=== PATIENT | male | born 1970 | race African-American/Black ===

== ENCOUNTER 2018-01-14 10:10 | Inpatient (IN) | payer BC ==
--- NOTE | 2018-01-14 12:45 | HP ---
CIWA Score - CIWA Score Nausea/Vomitin-Mild Nausea/No Vomiting Muscle Tremors: 3 Anxiety: 3 Agitation: 2 Paroxysmal Sweats: 1-Minimal Palms Moist Orientation: 0-Oriented Tacttile Disturbances: 0-None Auditory Disturbances: 0-None Visual Disturbances: 0-None Headache: 2-Mild CIWA-Ar Total Score: 12 Admission [facility] Chief Complaint: ETOH withdrawal symptoms. Allergies/Adverse Reactions: Allergies Allergy/AdvReac Type Severity Reaction Status Date / Time chlordiazepoxide Allergy Severe Swelling Verified 01/14/18 11:51 [From Librium] Fish Containing Products Allergy Severe Itching Verified 01/14/18 11:54 History of Present Illness: Patient presents with ETOH withdrawal symptoms. Started drinking ETOH at age 12. Drinks up to 1 pint of liquor daily and 12 20 ounce beers. Last drink last night. Patient also sniffs cocaine, last time used last night. States he uses cocaine socially. Also treated for opiod addiction with suboxone by Dr. Rukhsana Perez. Last dispensed 01/01/18 8mg BID #60, 30 day supply. Patient non- compliant with treatment. Last dose 4 days ago. PMH includes asthma and depression. Denies SI/HI. Has history of suicide attempts 1 1/2 years ago by overdosing on pills. Patient does not want suboxone treatment as in patient. Prefers to follow up with Dr. Perez. Denies any seizure history. Exam Limitations: No Limitations - Ebola screening Have you traveled outside of the country in the last 21 days: No Have you had contact with anyone from an Ebola affected area: No Have you been sick,other than usual withdrawal symptoms: No Do you have a fever: No - Review of Systems Constitutional: Changes in sleep, Unintentional Wgt. Loss EENT: reports: Nose Congestion Respiratory: reports: No Symptoms reported Cardiac: reports: No Symptoms Reported GI: reports: Diarrhea, Nausea, Poor Appetite : reports: No Symptoms Reported Musculoskeletal: reports: Back Pain, Joint Pain Integumentary: reports: Sweating Neuro: reports: Headache, Tremors Endocrine: reports: Unexplained Weight Loss Hematology: reports: No Symptoms Reported Psychiatric: reports: Orientated x3, Anxious, Depressed Patient History - Patient Medical History Hx Anemia: No Hx Asthma: Yes Hx Chronic Obstructive Pulmonary Disease (COPD): No Hx Cancer: No Hx Cardiac Disorders: No Hx Congestive Heart Failure: No Hx Hypertension: No Hx Hypercholesterolemia: No Hx Pacemaker: No HX Cerebrovascular Accident: No Hx Seizures: No Hx Dementia: No Hx Diabetes: No Hx Gastrointestinal Disorders: No Hx Liver Disease: No Hx Genitourinary Disorders: No Hx Sexually Transmitted Disorders: No Hx Renal Disease (ESRD): No Hx Thyroid Disease: No Hx Human Immunodeficiency Virus (HIV): No Hx Hepatitis C: No Hx Depression: Yes Hx Suicide Attempt: Yes (2016, pill overdose) Hx Bipolar Disorder: No Hx Schizophrenia: No - Patient Surgical History Past Surgical History: Yes Hx Neurologic Surgery: No Hx Cataract Extraction: No Hx Cardiac Surgery: No Hx Lung Surgery: No Hx Breast Surgery: No Hx Breast Biopsy: No Hx Abdominal Surgery: Yes (hernia repair) Hx Appendectomy: No Hx Cholecystectomy: No Hx Genitourinary Surgery: No Hx Orthopedic Surgery: No Anesthesia Reaction: No - PPD History Previous Implant?: Yes Documented Results: Negative w/o proof Implanted On Prior [facility] Admission?: No PPD to be Administered?: Yes - Smoking Cessation Smoking history: Never smoked Have you smoked in the past 12 months: No Hx Chewing Tobacco Use: No Initiated information on smoking cessation: No - Substance & Tx. History Hx Alcohol Use: Yes Hx Substance Use: Yes Substance Use Type: Alcohol, Cocaine Hx Substance Use Treatment: No - Substances Abused Cocaine Route: Inhalation Frequency: 1-3 times last 30 days Amount used: $50 Age of first use: 26 Date of Last Use: 01/13/18 Alcohol-beer Route: Oral Frequency: Daily Amount used: 5-6 pks. (16 oz.) Age of first use: 12 Date of Last Use: 01/13/18 Family Disease History - Family Disease History Family Disease History: Diabetes: Father (Hemodialysis patient), Other: Father Admission Physical Exam [facility] - Vital Signs Vital Signs: Vital Signs - 24 hr 01/14/18 11:11 Temperature 97 F L Pulse Rate 74 Respiratory 20 Rate Blood Pressure 113/72 - Physical General Appearance: Yes: Appropriately Dressed, Tremorous, Sweating, Anxious HEENTM: Yes: EOMI, Hearing grossly Normal, Normocephalic, Normal Voice, MELISSA, Nasal Congestion Respiratory: Yes: Chest Non-Tender, Lungs Clear, Normal Breath Sounds, No Respiratory Distress, No Accessory Muscle Use Neck: Yes: No masses,lesions,Nodules, Supple, Trachea in good position Breast: Yes: Breast Exam Deferred Cardiology: Yes: Regular Rhythm, Regular Rate, S1, S2 Abdominal: Yes: Normal Bowel Sounds, Non Tender, Soft Genitourinary: Yes: Within Normal Limits Back: Yes: Normal Inspection, Muscle Spasm Musculoskeletal: Yes: full range of Motion, Gait Steady, Back pain, Muscle Pain Extremities: Yes: Normal Range of Motion, Non-Tender, Tremors 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 NML intact, Fully Oriented, Alert, Motor Strength 5/5, Depressed Affect Integumentary: Yes: Normal Color, Warm, Moist Lymphatic: Yes: Within Normal Limits - Diagnostic (1) Alcohol dependence with uncomplicated withdrawal Current Visit: Yes Status: Acute (2) Cocaine dependence Current Visit: Yes Status: Acute Qualifiers: Substance use status: uncomplicated Qualified Code(s): F14.20 - Cocaine dependence, uncomplicated (3) Depressed affect Current Visit: Yes Status: Suspected (4) Asthma Current Visit: Yes Status: Chronic Qualifiers: Asthma complication type: unspecified Cleared for Admission [facility] - Detox or Rehab [facility] Level of Care: Medically Managed Detox Regimen/Protocol: Valium [facility] Breath Alcohol Content Breath Alcohol Content: 0 Urine Drug Screen - Results Drug Screen Negative: No Urine Drug Screen Results: AMIRA-Cocaine
[2018-01-14] MEDS ORDERED: guaiFENesin/D-METHORPHAN HB 10 ML UNIT-DOSE CUPS PO PRN (12:54)
[2018-01-14] MEDS ORDERED: ACETAMINOPHEN 325 MG TABLET (FP) PO PRN (12:54)
[2018-01-14] MEDS ORDERED: MAGNESIUM HYDROX 2400MG/30ML ORAL SUSPENSION 30 ML CUP PO PRN (12:54)
[2018-01-14] MEDS ORDERED: P-EPHED 60MG/TRIPROLIDI 2.5MG TABLET PO PRN (12:54)
[2018-01-14] MEDS ORDERED: IBUPROFEN 400 MG TABLET (FP) PO PRN (12:54)
[2018-01-14] MEDS ORDERED: LOPERAMIDE HCL 2 MG CAPSULE PO PRN (12:54)
[2018-01-14] MEDS ORDERED: hydrOXYzine PAMOATE 50 MG CAPSULE (FP) PO PRN (12:54)
[2018-01-14] MEDS ORDERED: MAG HYDROX/AL HYDROX/SIMETH 30 ML UNIT-DOSE CUP PO PRN (12:54)
[2018-01-14] MEDS ORDERED: MAGNESIUM CITRATE 300 ML BOTTLE PO PRN (12:54)
[2018-01-14] MEDS ORDERED: MENTHOL/PHENOL 1 EACH UD MM PRN (12:54)
[2018-01-14] MEDS ORDERED: diazePAM 5 MG TABLET PO ONE (14:00)
--- NOTE | 2018-01-14 14:53 | EKG ---
Test Reason : Blood Pressure : / mmHG Vent. Rate : 062 BPM Atrial Rate : 062 BPM P-R Int : 136 ms QRS Dur : 074 ms QT Int : 420 ms P-R-T Axes : 055 043 007 degrees QTc Int : 426 ms NORMAL SINUS RHYTHM NORMAL ECG NO PREVIOUS ECGS AVAILABLE Confirmed by JANET ANTHONY, MICHOACANO ([id number]) on 01/14/2018 2:52:26 PM Referred By: Confirmed By:MICHOACANO GONZALES MD
[2018-01-14 17:03] LABS: URINE APPEARANCE CLEAR; URINE BILIRUBIN NEGATIVE (<2.0 mg/dL); URINE BLOOD NEGATIVE (NEGATIVE); URINE COLOR YELLOW; URINE GLUCOSE (UA) NEGATIVE (NEGATIVE); URINE KETONE NEGATIVE (NEGATIVE); URINE LEUK ESTERASE NEGATIVE (NEGATIVE); URINE NITRITE NEGATIVE (NEGATIVE); URINE PROTEIN NEGATIVE (NEGATIVE)
[2018-01-14] MEDS ORDERED: MELATONIN 5 MG TABLETS PO PRN (22:00)
[2018-01-14] MEDS: diazePAM 5 MG TABLET PO SCH (22:56)
[2018-01-14] MEDS: THIAMINE HCL 100 MG TABLET (FP) PO SCH (22:57)
[2018-01-14] MEDS: ALBUTEROL SO4 18 GM HFA INHALER IH PRN (22:58)
[2018-01-15] MEDS: diazePAM 5 MG TABLET PO SCH ×3 (05:54→22:15)
[2018-01-15] MEDS: PRENATAL VITAMINS W/ FOLIC ACID TABLET (FP) PO SCH (09:40)
[2018-01-15] MEDS: diazePAM 5 MG TABLET PO PRN (09:41)
[2018-01-15] MEDS: SERTRALINE HCL 50 MG TABLET (FP) PO SCH (09:41)
[2018-01-15 10:36] LABS: CHLORIDE 104 mmol/L (98-107); HEMATOCRIT 47.2 % (35.4-49); HEMOGLOBIN 15.5 GM/dL (11.7-16.9); MCH 27.1 pg (25.7-33.7); MCHC 32.9 g/dl (32.0-35.9); MEAN CELL VOLUME 82.6 fl (80-96); MEAN PLT VOLUME 8.9 fl (7.5-11.1); PLATELET COUNT 237 K/MM3 (134-434); POTASSIUM 4.4 mmol/L (3.5-5.1); RBC 5.72 M/mm3 (4.00-5.60); RDW 16.1 % (11.9-15.9); SODIUM 139 mmol/L (136-145); WHITE BLOOD COUNT 4.8 K/mm3 (4.0-10.0)
[2018-01-15 11:04] LABS: ALBUMIN 3.9 g/dl (3.4-5.0); ALK PHOS 68 U/L (45-117); ANION GAP 9 (8-16); BILIRUBIN,TOTAL 1.1 mg/dL (0.2-1.0); BLOOD UREA NITROGEN 18 mg/dL (7-18); CALCIUM 9.1 mg/dL (8.5-10.1); CO2 26 mmol/L (21-32); CREATININE 1.3 mg/dL (0.7-1.3); GLUCOSE,RANDOM 77 mg/dL (74-106); SGOT/AST 29 U/L (15-37); SGPT/ALT 38 U/L (12-78); TOT PROT 7.3 g/dl (6.4-8.2)
--- NOTE | 2018-01-15 11:35 | PN ---
[facility] CIWA - CIWA Score Nausea/Vomitin Muscle Tremors: 3 Anxiety: 3 Agitation: 2 Paroxysmal Sweats: 1-Minimal Palms Moist Orientation: 0-Oriented Tacttile Disturbances: 1-Very Mild Itch/Numbness Auditory Disturbances: 1-Very Mild Visual Disturbances: 0-None Headache: 2-Mild CIWA-Ar Total Score: 16 S Progress Note (SOAP) Subjective: alert,irritable,anxious,interrupted sleep,tremor Objective: 01/15/18 11:35 Vital Signs Temperature 98.0 F 01/15/18 09:19 Pulse Rate 73 01/15/18 09:19 Respiratory Rate 18 01/15/18 09:19 Blood Pressure 117/78 01/15/18 09:19 O2 Sat by Pulse Oximetry (%) ekg normal sinus rhythm normal ecg prolong qt 420/426 no chest pain,no sob,no dizziness Laboratory Last Values WBC 4.8 K/mm3 (4.0-10.0) 01/15/18 06:00 RBC 5.72 M/mm3 (4.00-5.60) H 01/15/18 06:00 Hgb 15.5 GM/dL (11.7-16.9) 01/15/18 06:00 Hct 47.2 % (35.4-49) 01/15/18 06:00 MCV 82.6 fl (80-96) 01/15/18 06:00 MCH 27.1 pg (25.7-33.7) 01/15/18 06:00 MCHC 32.9 g/dl (32.0-35.9) 01/15/18 06:00 RDW 16.1 % (11.9-15.9) H 01/15/18 06:00 Plt Count 237 K/MM3 (134-434) 01/15/18 06:00 MPV 8.9 fl (7.5-11.1) 01/15/18 06:00 Sodium 139 mmol/L (136-145) 01/15/18 06:00 Potassium 4.4 mmol/L (3.5-5.1) 01/15/18 06:00 Chloride 104 mmol/L (98-107) 01/15/18 06:00 Carbon Dioxide 26 mmol/L (21-32) 01/15/18 06:00 Anion Gap 9 (8-16) 01/15/18 06:00 BUN 18 mg/dL (7-18) 01/15/18 06:00 Creatinine 1.3 mg/dL (0.7-1.3) 01/15/18 06:00 Creat Clearance w eGFR 58.43 (>60) 01/15/18 06:00 Random Glucose 77 mg/dL (74-106) 01/15/18 06:00 Calcium 9.1 mg/dL (8.5-10.1) 01/15/18 06:00 Total Bilirubin 1.1 mg/dL (0.2-1.0) H 01/15/18 06:00 AST 29 U/L (15-37) 01/15/18 06:00 ALT 38 U/L (12-78) 01/15/18 06:00 Alkaline Phosphatase 68 U/L (45-117) 01/15/18 06:00 Total Protein 7.3 g/dl (6.4-8.2) 01/15/18 06:00 Albumin 3.9 g/dl (3.4-5.0) 01/15/18 06:00 Urine Color Yellow 01/14/18 14:00 Urine Appearance Clear 01/14/18 14:00 Urine pH 5.0 (5.0-8.0) 01/14/18 14:00 Ur Specific [place] 1.026 (1.001-1.035) 01/14/18 14:00 Urine Protein Negative (NEGATIVE) 01/14/18 14:00 Urine Glucose (UA) Negative (NEGATIVE) 01/14/18 14:00 Urine Ketones Negative (NEGATIVE) 01/14/18 14:00 Urine Blood Negative (NEGATIVE) 01/14/18 14:00 Urine Nitrite Negative (NEGATIVE) 01/14/18 14:00 Urine Bilirubin Negative (<2.0 mg/dL) 01/14/18 14:00 Urine Urobilinogen 2.0 mg/dL (0.2-1.0) 01/14/18 14:00 Ur Leukocyte Esterase Negative (NEGATIVE) 01/14/18 14:00 HIV 1&2 Antibody Screen Negative 01/14/18 14:00 HIV P24 Antigen Negative 01/14/18 14:00 Assessment: 01/15/18 11:38 withdrawal symptom Plan: continue detox
--- NOTE | 2018-01-15 12:09 | CONSULT ---
[facility] Psychiatric Consult - Data Date of interview: 01/15/18 Admission source: [facility] Identifying data: This is 48 years old male, single father of four, living alone , unemployed, with history of Bipolar Disorder, history of Psychiatrioc Hospitalizations, reports history of Alcogol, Cocaine dependemnce, reports withdrawal symptoms and seeking for detox Substance Abuse History: Smoking history: Never smoked. Have you smoked in the past 12 months: No. Hx Chewing Tobacco Use: No. Initiated information on smoking cessation: No. - Substance & Tx. History. Hx Alcohol Use: Yes. Hx Substance Use: Yes. Substance Use Type: Alcohol, Cocaine. Hx Substance Use Treatment: No. - Substances Abused. Cocaine. Route: Inhalation. Frequency : 1-3 times last 30 days. Amount used: $50. Age of first use: 26. Date of Last Use: 01/13/18. Alcohol-beer. Route: Oral. Frequency: Daily. Amount used: 5-6 pks. (16 oz.). Age of first use: 12. Date of Last Use: 01/13/18 Medical History: Asthma Psychiatric History: Patient reports history of anxiety and depression, reports history of suicidal attempt by OD on 2015, no suicidal history since then, reports most recent psychiatric admission a month ago at [facility]. As per computer carries Bipolar Disorder, reports taking prior to admission: Trazodone 100mg po qhs. Depakote 750mg po qhs. Zoloft 50mg poqd Physical/Sexual Abuse/Trauma History: Denies Additional Comment: Trazodone 100mg po qhs. Depakote 750mg po qhs. Zoloft 50mg poqd Mental Status Exam - Mental Status Exam Alert and Oriented to: Person Cognitive Function: Fair Patient Appearance: Unkempt Mood: Anxious Affect: Mood Congruent Patient Behavior: Cooperative Speech Pattern: Appropriate Voice Loudness: Mildly Soft/Quiet Thought Process: Goal Oriented Thought Disorder: Being Controlled Hallucinations: Denies Suicidal Ideation: Denies Homicidal Ideation: Denies Insight/Judgement: Fair Sleep: Difficulty falling asleep Appetite: Fair Muscle strength/Tone: Mild Hypotonicity Gait/Station: Normal Additional Comments: Trazodone 100mg po qhs. Depakote 750mg po qhs. Zoloft 50mg poqd Psychiatric Findings - Problem List ([place] 1, 2,3) (1) Drug-induced mood disorder Current Visit: Yes Status: Acute (2) Bipolar I disorder Current Visit: Yes Status: Acute (3) Alcohol dependence with uncomplicated withdrawal Current Visit: Yes Status: Acute (4) Cocaine dependence Current Visit: Yes Status: Acute Qualifiers: Substance use status: uncomplicated Qualified Code(s): F14.20 - Cocaine dependence, uncomplicated - Initial Treatment Plan Initial Treatment Plan: Trazodone 100mg po qhs. Depakote 750mg po qhs. Zoloft 50mg poqd. Depakote blood level
[2018-01-15] MEDS ORDERED: DIVALPROEX SODIUM 500 MG TABLET E.C. ONE (20:23)
[2018-01-15] MEDS ORDERED: DIVALPROEX SODIUM 250 MG TABLET E.C. ONE (20:23)
[2018-01-15] MEDS ORDERED: DIVALPROEX SODIUM 500 MG TABLET E.C. PO SCH (22:00)
[2018-01-15] MEDS: traZODone HCL 100 MG TABLET (FP) PO SCH (22:15)
[2018-01-15] MEDS: THIAMINE HCL 100 MG TABLET (FP) PO SCH (22:16)
[2018-01-15] MEDS: DIVALPROEX 500 MG, DIVALPROEX 250 MG PO SCH (22:16)
[2018-01-15] MEDS: ALBUTEROL SO4 18 GM HFA INHALER IH PRN (22:42)
[2018-01-16] MEDS: PRENATAL VITAMINS W/ FOLIC ACID TABLET (FP) PO SCH (10:15)
[2018-01-16] MEDS: SERTRALINE HCL 50 MG TABLET (FP) PO SCH (10:15)
[2018-01-16] MEDS: diazePAM 5 MG TABLET PO SCH ×2 (10:15→22:20)
--- NOTE | 2018-01-16 12:48 | PN ---
S CIWA - CIWA Score Nausea/Vomitin Muscle Tremors: 3 Anxiety: 3 Agitation: 2 Paroxysmal Sweats: 1-Minimal Palms Moist Orientation: 0-Oriented Tacttile Disturbances: 1-Very Mild Itch/Numbness Auditory Disturbances: 1-Very Mild Visual Disturbances: 0-None Headache: 2-Mild CIWA-Ar Total Score: 16 S Progress Note (SOAP) Subjective: alert,irritable,anxious,interrupted sleep,tremor Objective: 01/16/18 12:47 Vital Signs Temperature 97.3 F L 01/16/18 11:38 Pulse Rate 67 01/16/18 11:38 Respiratory Rate 20 01/16/18 11:38 Blood Pressure 113/73 01/16/18 11:38 O2 Sat by Pulse Oximetry (%) 01/16/18 12:47 Laboratory Last Values WBC 4.8 K/mm3 (4.0-10.0) 01/15/18 06:00 RBC 5.72 M/mm3 (4.00-5.60) H 01/15/18 06:00 Hgb 15.5 GM/dL (11.7-16.9) 01/15/18 06:00 Hct 47.2 % (35.4-49) 01/15/18 06:00 MCV 82.6 fl (80-96) 01/15/18 06:00 MCH 27.1 pg (25.7-33.7) 01/15/18 06:00 MCHC 32.9 g/dl (32.0-35.9) 01/15/18 06:00 RDW 16.1 % (11.9-15.9) H 01/15/18 06:00 Plt Count 237 K/MM3 (134-434) 01/15/18 06:00 MPV 8.9 fl (7.5-11.1) 01/15/18 06:00 Sodium 139 mmol/L (136-145) 01/15/18 06:00 Potassium 4.4 mmol/L (3.5-5.1) 01/15/18 06:00 Chloride 104 mmol/L (98-107) 01/15/18 06:00 Carbon Dioxide 26 mmol/L (21-32) 01/15/18 06:00 Anion Gap 9 (8-16) 01/15/18 06:00 BUN 18 mg/dL (7-18) 01/15/18 06:00 Creatinine 1.3 mg/dL (0.7-1.3) 01/15/18 06:00 Creat Clearance w eGFR 58.43 (>60) 01/15/18 06:00 Random Glucose 77 mg/dL (74-106) 01/15/18 06:00 Calcium 9.1 mg/dL (8.5-10.1) 01/15/18 06:00 Total Bilirubin 1.1 mg/dL (0.2-1.0) H 01/15/18 06:00 AST 29 U/L (15-37) 01/15/18 06:00 ALT 38 U/L (12-78) 01/15/18 06:00 Alkaline Phosphatase 68 U/L (45-117) 01/15/18 06:00 Total Protein 7.3 g/dl (6.4-8.2) 01/15/18 06:00 Albumin 3.9 g/dl (3.4-5.0) 01/15/18 06:00 Urine Color Yellow 01/14/18 14:00 Urine Appearance Clear 01/14/18 14:00 Urine pH 5.0 (5.0-8.0) 01/14/18 14:00 Ur Specific [place] 1.026 (1.001-1.035) 01/14/18 14:00 Urine Protein Negative (NEGATIVE) 01/14/18 14:00 Urine Glucose (UA) Negative (NEGATIVE) 01/14/18 14:00 Urine Ketones Negative (NEGATIVE) 01/14/18 14:00 Urine Blood Negative (NEGATIVE) 01/14/18 14:00 Urine Nitrite Negative (NEGATIVE) 01/14/18 14:00 Urine Bilirubin Negative (<2.0 mg/dL) 01/14/18 14:00 Urine Urobilinogen 2.0 mg/dL (0.2-1.0) 01/14/18 14:00 Ur Leukocyte Esterase Negative (NEGATIVE) 01/14/18 14:00 Valproic Acid 54.4 ug/ml (50-100) 01/16/18 07:30 RPR Titer Nonreactive (NONREACTIVE) 01/15/18 06:00 HIV 1&2 Antibody Screen Negative 01/14/18 14:00 HIV P24 Antigen Negative 01/14/18 14:00 Assessment: 01/16/18 12:48 withdrawal symptom Plan: continue detox
[2018-01-16] MEDS: diazePAM 5 MG TABLET PO PRN (15:31)
[2018-01-16] MEDS ORDERED: DIVALPROEX SODIUM 250 MG TABLET E.C. ONE (21:14)
[2018-01-16] MEDS ORDERED: DIVALPROEX SODIUM 500 MG TABLET E.C. ONE (21:14)
[2018-01-16] MEDS: DIVALPROEX 500 MG, DIVALPROEX 250 MG PO SCH (22:20)
[2018-01-16] MEDS: THIAMINE HCL 100 MG TABLET (FP) PO SCH (22:20)
[2018-01-16] MEDS: traZODone HCL 100 MG TABLET (FP) PO SCH (22:20)
[2018-01-17] MEDS: PRENATAL VITAMINS W/ FOLIC ACID TABLET (FP) PO SCH (10:21)
[2018-01-17] MEDS: SERTRALINE HCL 50 MG TABLET (FP) PO SCH (10:21)
[2018-01-17] MEDS: diazePAM 5 MG TABLET PO SCH ×2 (10:21→23:11)
--- NOTE | 2018-01-17 13:02 | PN ---
S Progress Note (SOAP) Subjective: alert,irritable,anxious,interrupted sleep Objective: 01/17/18 13:01 Vital Signs Temperature 97.5 F L 01/17/18 10:39 Pulse Rate 78 01/17/18 10:39 Respiratory Rate 20 01/17/18 10:39 Blood Pressure 119/68 01/17/18 10:39 O2 Sat by Pulse Oximetry (%) Assessment: 01/17/18 13:02 withdrawal symptom Plan: continue detox,discharge in am
[2018-01-17] MEDS ORDERED: DIVALPROEX SODIUM 250 MG TABLET E.C. ONE (21:52)
[2018-01-17] MEDS ORDERED: DIVALPROEX SODIUM 500 MG TABLET E.C. ONE (21:52)
[2018-01-17] MEDS: THIAMINE HCL 100 MG TABLET (FP) PO SCH (23:11)
[2018-01-17] MEDS: traZODone HCL 100 MG TABLET (FP) PO SCH (23:11)
[2018-01-17] MEDS: DIVALPROEX 500 MG, DIVALPROEX 250 MG PO SCH (23:11)
[2018-01-17] MEDS: ALBUTEROL SO4 18 GM HFA INHALER IH PRN (23:14)
--- NOTE | 2018-01-18 08:59 | DS ---
[facility] Detox Discharge Summary Admission Date: 01/14/18 Discharge Date: 01/18/18 - History Present History: Alcohol Dependence Additional Comments: 48 years old male admitted 01/14/18 for alcohol withdrawal sx completed alcohol detox regimen tolerated well denies alcohol withdrawal sx alert oriented x 3 no acute distress aftercare suboxone maintenance program [facility] brief motivational intervention on asthma suboxone and alcohol aftercare - Physical Exam Results Vital Signs: Vital Signs Temperature 97.3 F L 01/18/18 07:17 Pulse Rate 73 01/18/18 07:17 Respiratory Rate 20 01/18/18 07:17 Blood Pressure 127/66 01/18/18 07:17 O2 Sat by Pulse Oximetry (%) Pertinent Admission Physical Exam Findings: alcohol withdrawal sx Vital Signs Temperature 97.3 F L 01/18/18 07:17 Pulse Rate 73 01/18/18 07:17 Respiratory Rate 20 01/18/18 07:17 Blood Pressure 127/66 01/18/18 07:17 O2 Sat by Pulse Oximetry (%) Laboratory Last Values WBC 4.8 K/mm3 (4.0-10.0) 01/15/18 06:00 RBC 5.72 M/mm3 (4.00-5.60) H 01/15/18 06:00 Hgb 15.5 GM/dL (11.7-16.9) 01/15/18 06:00 Hct 47.2 % (35.4-49) 01/15/18 06:00 MCV 82.6 fl (80-96) 01/15/18 06:00 MCH 27.1 pg (25.7-33.7) 01/15/18 06:00 MCHC 32.9 g/dl (32.0-35.9) 01/15/18 06:00 RDW 16.1 % (11.9-15.9) H 01/15/18 06:00 Plt Count 237 K/MM3 (134-434) 01/15/18 06:00 MPV 8.9 fl (7.5-11.1) 01/15/18 06:00 Sodium 139 mmol/L (136-145) 01/15/18 06:00 Potassium 4.4 mmol/L (3.5-5.1) 01/15/18 06:00 Chloride 104 mmol/L (98-107) 01/15/18 06:00 Carbon Dioxide 26 mmol/L (21-32) 01/15/18 06:00 Anion Gap 9 (8-16) 01/15/18 06:00 BUN 18 mg/dL (7-18) 01/15/18 06:00 Creatinine 1.3 mg/dL (0.7-1.3) 01/15/18 06:00 Creat Clearance w eGFR 58.43 (>60) 01/15/18 06:00 Random Glucose 77 mg/dL (74-106) 01/15/18 06:00 Calcium 9.1 mg/dL (8.5-10.1) 01/15/18 06:00 Total Bilirubin 1.1 mg/dL (0.2-1.0) H 01/15/18 06:00 AST 29 U/L (15-37) 01/15/18 06:00 ALT 38 U/L (12-78) 01/15/18 06:00 Alkaline Phosphatase 68 U/L (45-117) 01/15/18 06:00 Total Protein 7.3 g/dl (6.4-8.2) 01/15/18 06:00 Albumin 3.9 g/dl (3.4-5.0) 01/15/18 06:00 Urine Color Yellow 01/14/18 14:00 Urine Appearance Clear 01/14/18 14:00 Urine pH 5.0 (5.0-8.0) 01/14/18 14:00 Ur Specific [place] 1.026 (1.001-1.035) 01/14/18 14:00 Urine Protein Negative (NEGATIVE) 01/14/18 14:00 Urine Glucose (UA) Negative (NEGATIVE) 01/14/18 14:00 Urine Ketones Negative (NEGATIVE) 01/14/18 14:00 Urine Blood Negative (NEGATIVE) 01/14/18 14:00 Urine Nitrite Negative (NEGATIVE) 01/14/18 14:00 Urine Bilirubin Negative (<2.0 mg/dL) 01/14/18 14:00 Urine Urobilinogen 2.0 mg/dL (0.2-1.0) 01/14/18 14:00 Ur Leukocyte Esterase Negative (NEGATIVE) 01/14/18 14:00 Valproic Acid 54.4 ug/ml (50-100) 01/16/18 07:30 RPR Titer Nonreactive (NONREACTIVE) 01/15/18 06:00 HIV 1&2 Antibody Screen Negative 01/14/18 14:00 HIV P24 Antigen Negative 01/14/18 14:00 lab noted - Treatment Hospital Course: Detox Protocol Followed, Detoxed Safely, Responded well, Discharged Condition Good, Rehab Referral Accepted Patient has Accepted a Rehab Referral to: [facility] - Medication Discharge Medications: Ambulatory Orders Buprenorphine/Naloxone [Suboxone 8Mg/2Mg Sl Film -] 1 each SL TID 01/14/18 Divalproex [Depakote -] 750 mg PO HS #30 tablet.ec 01/15/18 Sertraline HCl [Zoloft -] 50 mg PO DAILY #30 tablet 01/15/18 Trazodone HCl 100 mg PO HS #30 tablet 01/15/18 Albuterol Sulfate Inhaler - [Ventolin HFA Inhaler -] 2 inh PO Q4H PRN #1 inhaler 01/18/18 - Diagnosis (1) Encounter for monitoring Suboxone maintenance therapy Current Visit: Yes Status: Chronic (2) Alcohol dependence with uncomplicated withdrawal Current Visit: Yes Status: Acute (3) Asthma Current Visit: Yes Status: Chronic Qualifiers: Asthma severity: mild Asthma persistence: intermittent Asthma complication type: unspecified Qualified Code(s): J45.20 - Mild intermittent asthma, uncomplicated - AMA Did Patient Leave Against Medical Advice: No
[2018-01-18] MEDS: PRENATAL VITAMINS W/ FOLIC ACID TABLET (FP) PO SCH (09:27)
[2018-01-18] MEDS: SERTRALINE HCL 50 MG TABLET (FP) PO SCH (09:27)
[2018-01-18 09:58] VITALS: BP 121/71; PULSE 75; TEMP 97.7
[2018-01-18] MEDS ORDERED: diazePAM 5 MG TABLET PO SCH (10:00)
== END 2018-01-18 09:31 | disposition home or self-care (01) | DRG 773 ==
LOC: YASAS 10:10 → Y6N 13:05
PROVIDERS: ADMIT Surgery; ATTEND Surgery
PROC: HZ2ZZZZ Detoxification Services for Substance Abuse Treatment (ICD-10-PCS; principal; 2018-01-14)
DX: F10.230 Alcohol dependence with withdrawal, uncomplicated (principal); F11.20 Opioid dependence, uncomplicated; F14.20 Cocaine dependence, uncomplicated; F19.24 Other psychoactive substance dependence with psychoactive substance-induced mood disorder; F31.89 Other bipolar disorder; F32.9 Major depressive disorder, single episode, unspecified; J45.20 Mild intermittent asthma, uncomplicated; I45.81 Long QT syndrome; Z91.013 Allergy to seafood; Z91.5 Personal history of self-harm
CPT/HCPCS: 36415; 80053; 80164; 81003; 85027; 86593; 87389; 93005; 93010

== ENCOUNTER 2018-05-04 11:40 | Inpatient (IN) | payer BC ==
[2018-05-04 12:03] VITALS: BMI 31.6
--- NOTE | 2018-05-04 14:51 | HP ---
CIWA Score - CIWA Score Nausea/Vomitin Muscle Tremors: 3 Anxiety: 2 Agitation: 2 Paroxysmal Sweats: 1-Minimal Palms Moist Orientation: 0-Oriented Tacttile Disturbances: 1-Very Mild Itch/Numbness Auditory Disturbances: 1-Very Mild Visual Disturbances: 1-Very Mild Sensitivity Headache: 2-Mild CIWA-Ar Total Score: 16 Admission ROS BHS - HPI Chief Complaint: i need help to stop drinking alcohol Allergies/Adverse Reactions: Allergies Allergy/AdvReac Type Severity Reaction Status Date / Time chlordiazepoxide Allergy Severe Swelling Verified 05/04/18 12:24 [From Librium] Fish Containing Products Allergy Severe Swelling Verified 05/04/18 12:46 haloperidol AdvReac Intermediate STIFFNESS Verified 05/04/18 12:45 History of Present Illness: this 48 years old male with alcohol dependence,seeking detox,withdrawal symptom, last detox [facility] 01/14/18 to 01/18/18 on suboxone maintenance 8mg/2mg bid,last medicated yesterday asthma multiple admissions in detox,keep relapsing longest period of sobriety 5 years anxiety,depression,insomnia Exam Limitations: No Limitations - Ebola screening Have you traveled outside of the country in the last 21 days: No Have you had contact with anyone from an Ebola affected area: No Have you been sick,other than usual withdrawal symptoms: No Do you have a fever: No - Review of Systems Constitutional: Loss of Appetite, Malaise, Night Sweats, Changes in sleep EENT: reports: Nose Congestion Respiratory: reports: Other (asthma) Cardiac: reports: No Symptoms Reported GI: reports: Diarrhea, Nausea, Vomiting, Abdominal cramping : reports: No Symptoms Reported Musculoskeletal: reports: Back Pain, Muscle Pain Neuro: reports: Headache, Tremors Endocrine: reports: No Symptoms Reported Hematology: reports: No Symptoms Reported Psychiatric: reports: No Sypmtoms Reported (insomnia), Judgement Intact, Mood/ Affect Appropiate, Anxious, Depressed Patient History - Patient Medical History Hx Anemia: No Hx Asthma: Yes (on albuterol inhaler) Hx Chronic Obstructive Pulmonary Disease (COPD): No Hx Cancer: No Hx Cardiac Disorders: No Hx Congestive Heart Failure: No Hx Hypertension: No Hx Hypercholesterolemia: No Hx Pacemaker: No HX Cerebrovascular Accident: No Hx Seizures: No Hx Dementia: No Hx Diabetes: No Hx Gastrointestinal Disorders: No Hx Liver Disease: No Hx Genitourinary Disorders: No Hx Sexually Transmitted Disorders: No Hx Renal Disease (ESRD): No Hx Thyroid Disease: No Hx Human Immunodeficiency Virus (HIV): No (last 2014 negative) Hx Hepatitis C: No Hx Depression: Yes Hx Suicide Attempt: Yes (2015, pill overdose) Hx Bipolar Disorder: No Hx Schizophrenia: No Other Medical History: no suicidal,no homicidal - Patient Surgical History Past Surgical History: Yes Hx Neurologic Surgery: No Hx Cataract Extraction: No Hx Cardiac Surgery: No Hx Lung Surgery: No Hx Breast Surgery: No Hx Breast Biopsy: No Hx Abdominal Surgery: Yes (hernia repair umbilical in 2003) Hx Appendectomy: No Hx Cholecystectomy: No Hx Genitourinary Surgery: No Hx Section: No Hx Orthopedic Surgery: No Anesthesia Reaction: No - PPD History Previous Implant?: Yes Documented Results: Negative w/proof Date: 01/14/18 Results: 0 mm PPD to be Administered?: No - Smoking Cessation Smoking history: Never smoked Have you smoked in the past 12 months: No Hx Chewing Tobacco Use: No - Substance & Tx. History Hx Alcohol Use: Yes Hx Substance Use: Yes Substance Use Type: Alcohol, Cocaine Hx Substance Use Treatment: Yes ([facility] 01/14/18 to 01/18/18) - Substances Abused Alcohol Route: Oral Frequency: Daily Amount used: 3-6 OZ CANS OF BEER AND 0.5 PINT VODKA DAILY Age of first use: 11 Date of Last Use: 05/03/18 Cocaine Route: Smoking Frequency: 1-2 times per week Amount used: $50-60 DOLLARS Age of first use: 26 Date of Last Use: 05/03/18 Family Disease History - Family Disease History Family Disease History: Diabetes: Father (Hemodialysis patient,), Other: Father Admission Physical Exam S - Vital Signs Vital Signs: Vital Signs - 24 hr 05/04/18 12:01 Temperature 97.2 F L Pulse Rate 82 Respiratory 18 Rate Blood Pressure 110/70 - Physical General Appearance: Yes: Moderate Distress, Tremorous, Irritable, Sweating, Anxious HEENTM: Yes: Normal ENT Inspection, MELISSA, Pharynx Normal Respiratory: Yes: Lungs Clear, Normal Breath Sounds, No Respiratory Distress Neck: Yes: Within Normal Limits, Supple, Trachea in good position Breast: Yes: Within Normal Limits Cardiology: Yes: Within Normal Limits, Regular Rhythm, Regular Rate, S1, S2 Abdominal: Yes: Within Normal Limits, Normal Bowel Sounds, Non Tender, Soft Genitourinary: Yes: Within Normal Limits Back: Yes: Muscle Spasm Musculoskeletal: Yes: Back pain, Muscle Pain Extremities: Yes: Normal Range of Motion, Tremors Neurological: Yes: icing coater II-XII NML intact, Fully Oriented, Alert, Motor Strength 5/5 Integumentary: Yes: Dry Lymphatic: Yes: Within Normal Limits - Diagnostic (1) Alcohol dependence with uncomplicated withdrawal Current Visit: No Status: Acute (2) Cocaine dependence Current Visit: No Status: Acute Qualifiers: Substance use status: uncomplicated Qualified Code(s): F14.20 - Cocaine dependence, uncomplicated (3) Drug-induced mood disorder Current Visit: No Status: Acute (4) Asthma Current Visit: No Status: Chronic Qualifiers: Asthma severity: mild Asthma persistence: intermittent Asthma complication type: unspecified Qualified Code(s): J45.20 - Mild intermittent asthma, uncomplicated (5) Encounter for monitoring Suboxone maintenance therapy Current Visit: No Status: Chronic (6) Anxiety and depression Current Visit: Yes Status: Acute (7) Insomnia Current Visit: Yes Status: Acute Cleared for Admission [facility] - Detox or Rehab [facility] Level of Care: Medically Managed Detox Regimen/Protocol: Valium [facility] Breath Alcohol Content Breath Alcohol Content: 0.13 Urine Drug Screen - Results Drug Screen Negative: No Urine Drug Screen Results: AMIRA-Cocaine
[2018-05-04] MEDS ORDERED: MENTHOL/PHENOL 1 EACH UD MM PRN (15:03)
[2018-05-04] MEDS ORDERED: ACETAMINOPHEN 325 MG TABLET (FP) PO PRN (15:03)
[2018-05-04] MEDS ORDERED: MAGNESIUM HYDROX 2400MG/30ML ORAL SUSPENSION 30 ML CUP PO PRN (15:03)
[2018-05-04] MEDS ORDERED: IBUPROFEN 400 MG TABLET (FP) PO PRN (15:03)
[2018-05-04] MEDS ORDERED: MAGNESIUM CITRATE 300 ML BOTTLE PO PRN (15:03)
[2018-05-04] MEDS ORDERED: diazePAM 5 MG TABLET PO PRN (15:03)
[2018-05-04] MEDS ORDERED: LOPERAMIDE HCL 2 MG CAPSULE PO PRN (15:03)
[2018-05-04] MEDS ORDERED: MAG HYDROX/AL HYDROX/SIMETH 30 ML UNIT-DOSE CUP PO PRN (15:03)
[2018-05-04] MEDS ORDERED: P-EPHED 60MG/TRIPROLIDI 2.5MG TABLET PO PRN (15:03)
[2018-05-04] MEDS ORDERED: guaiFENesin/D-METHORPHAN HB 10 ML UNIT-DOSE CUPS PO PRN (15:03)
[2018-05-04] MEDS ORDERED: ALBUTEROL SO4 8 GM HFA INHALER IH PRN (15:09)
[2018-05-04] MEDS ORDERED: diazePAM 5 MG TABLET PO ONE (15:25)
[2018-05-04 18:06] LABS: URINE APPEARANCE CLOUDY; URINE BILIRUBIN NEGATIVE (<2.0 mg/dL); URINE COLOR YELLOW; URINE GLUCOSE (UA) NEGATIVE (NEGATIVE); URINE KETONE NEGATIVE (NEGATIVE); URINE LEUK ESTERASE NEGATIVE (NEGATIVE); URINE NITRITE NEGATIVE (NEGATIVE); URINE PROTEIN NEGATIVE (NEGATIVE); URINE UROBILINOGEN 4.0 E.U/dl mg/dL (0.2-1.0)
[2018-05-04] MEDS ORDERED: MELATONIN 5 MG TABLETS PO PRN (22:00)
[2018-05-04] MEDS: THIAMINE HCL 100 MG TABLET (FP) PO SCH (22:16)
[2018-05-04] MEDS: diazePAM 5 MG TABLET PO SCH (22:16)
[2018-05-04] MEDS: BUPRENORPHINE/NALOXONE 8 MG/2 MG FILM PACKET SL SCH (22:16)
[2018-05-04] MEDS: BUDESONIDE/FORMETEROL FUMARATE 80/4.5 mcg INHALER IH SCH (22:16)
[2018-05-05] MEDS: diazePAM 5 MG TABLET PO SCH ×3 (06:16→22:13)
[2018-05-05] MEDS: PRENATAL VITAMINS W/ FOLIC ACID TABLET (FP) PO SCH (10:22)
[2018-05-05] MEDS: BUDESONIDE/FORMETEROL FUMARATE 80/4.5 mcg INHALER IH SCH ×2 (10:24→22:13)
[2018-05-05 10:45] LABS: HEMATOCRIT 42.1 % (35.4-49); HEMOGLOBIN 13.7 GM/dL (11.7-16.9); MCH 26.7 pg (25.7-33.7); MCHC 32.6 g/dl (32.0-35.9); MEAN CELL VOLUME 81.9 fl (80-96); MEAN PLT VOLUME 9.1 fl (7.5-11.1); PLATELET COUNT 196 K/MM3 (134-434); RBC 5.14 M/mm3 (4.00-5.60); RDW 16.4 % (11.9-15.9); WHITE BLOOD COUNT 5.5 K/mm3 (4.0-10.0)
--- NOTE | 2018-05-05 10:59 | EKG ---
Test Reason : Blood Pressure : / mmHG Vent. Rate : 070 BPM Atrial Rate : 070 BPM P-R Int : 144 ms QRS Dur : 076 ms QT Int : 392 ms P-R-T Axes : 053 047 -32 degrees QTc Int : 423 ms NORMAL SINUS RHYTHM NONSPECIFIC ST AND T WAVE ABNORMALITY ABNORMAL ECG Confirmed by MD CELINE, SARITHA ([id number]) on 05/05/2018 10:58:49 AM Referred By: BRITTANY Confirmed By:SARITHA BERGER MD
--- NOTE | 2018-05-05 11:02 | EKG ---
Test Reason : Blood Pressure : / mmHG Vent. Rate : 071 BPM Atrial Rate : 071 BPM P-R Int : 142 ms QRS Dur : 070 ms QT Int : 386 ms P-R-T Axes : 059 038 015 degrees QTc Int : 419 ms NORMAL SINUS RHYTHM SEPTAL INFARCT , AGE UNDETERMINED ABNORMAL ECG Confirmed by MD CELINE, SARITHA ([id number]) on 05/05/2018 11:02:24 AM Referred By: Confirmed By:SARITHA BERGER MD
[2018-05-05] MEDS: BUPRENORPHINE/NALOXONE 8 MG/2 MG FILM PACKET SL SCH ×2 (11:43→22:13)
[2018-05-05 11:49] LABS: ALBUMIN 3.7 g/dl (3.4-5.0); ALK PHOS 63 U/L (45-117); ANION GAP 11 MMOL/L (8-16); BILIRUBIN,TOTAL 0.7 mg/dL (0.2-1); BLOOD UREA NITROGEN 17 mg/dL (7-18); CALCIUM 8.9 mg/dL (8.5-10.1); CHLORIDE 107 mmol/L (98-107); CO2 24 mmol/L (21-32); CREATININE 1.2 mg/dL (0.55-1.3); GLUCOSE,RANDOM 106 mg/dL (74-106); POTASSIUM 3.8 mmol/L (3.5-5.1); SGOT/AST 54 U/L (15-37); SGPT/ALT 61 U/L (13-61); SODIUM 142 mmol/L (136-145); TOT PROT 7.1 g/dl (6.4-8.2)
--- NOTE | 2018-05-05 12:20 | CONSULT ---
[facility] Psychiatric Consult - Data Date of interview: 05/05/18 Admission source: [facility] Identifying data: Patient is a 48 year old single male, father of four, domiciled, and currently unemployed. This is one of multiple admissions for patient. Pt. admitted to for alcohol and cocaine dependence. Substance Abuse History: - Smoking Cessation. Smoking history: Never smoked. Have you smoked in the past 12 months: No. Hx Chewing Tobacco Use: No. - Substance & Tx. History. Hx Alcohol Use: Yes. Hx Substance Use: Yes. Substance Use Type: Alcohol, Cocaine. Hx Substance Use Treatment: Yes ([facility] 01/26 to 01/18/18). - Substances Abused. Alcohol. Route: Oral. Frequency : Daily. Amount used: 3-6 OZ CANS OF BEER AND 0.5 PINT VODKA DAILY. Age of first use: 11. Date of Last Use: 05/03/18. Cocaine. Route: Smoking. Frequency: 1-2 times per week. Amount used: $50-60 DOLLARS. Age of first use: 26. Date of Last Use: 05/03/18 Medical History: Asthma, hernia repair umbilical in 2003 Psychiatric History: Patient reports multiple psychiatric hospitalization, most recently at [facility] 4 weeks ago. Pt. is also known to [facility]. While at [facility] patient was prescribed zyprexa 20mg + Depakote 1500mg + Gabapentin 400mg TID + Zoloft 100mg. Pharmacy claims reviewed. Most recent outpatient psychiatric care was provided one month ago at the [facility]. Reports a diagnosis of bipolar disorder. Patient reports two suicide attempts. 2016 via o[place]erd[place] and 2017 via cutting arms. No psychosis or manic symptoms noted.Pt. denies current urges or thoughts to hurt self. Physical/Sexual Abuse/Trauma History: denies. Mental Status Exam - Mental Status Exam Alert and Oriented to: Time, Place, Person Cognitive Function: Good Patient Appearance: Well Groomed Mood: Withdrawn, Euthymic Affect: Mood Congruent Patient Behavior: Fatigued, Appropriate, Cooperative Speech Pattern: Appropriate Voice Loudness: Moderately Soft/Quiet Thought Process: Intact, Goal Oriented Thought Disorder: Not Present Hallucinations: Denies Suicidal Ideation: Denies Homicidal Ideation: Denies Insight/Judgement: Poor Sleep: Fair Appetite: Fair Muscle strength/Tone: Normal Gait/Station: Normal Psychiatric Findings - Problem List ([place] 1, 2,3) (1) Alcohol dependence with uncomplicated withdrawal Current Visit: Yes Status: Acute (2) Cocaine dependence Current Visit: Yes Status: Chronic Qualifiers: Substance use status: uncomplicated Qualified Code(s): F14.20 - Cocaine dependence, uncomplicated (3) Bipolar disorder Current Visit: Yes Status: Chronic (4) Schizoaffective disorder Current Visit: No Status: Suspected - Initial Treatment Plan Initial Treatment Plan: Psychoeducation provided. Detoxification in progress. Zoloft 50mg + Depakote 500mg BID + Zyprexa 5mg qhs + Gabapentin 400mg TID. Dosages reduced due to patient's request. Valproic acid level ordered for . Benefits and side effects discussed. Verbal consent given.
[2018-05-05] MEDS: SERTRALINE HCL 50 MG TABLET (FP) PO SCH (13:12)
[2018-05-05] MEDS: GABAPENTIN 400 MG CAPSULE (FP) PO SCH ×2 (13:12→22:13)
--- NOTE | 2018-05-05 16:29 | PN ---
[facility] CIWA - CIWA Score Nausea/Vomitin-Mild Nausea/No Vomiting Muscle Tremors: 3 Anxiety: 4-Mod. Anxious/Guarded Agitation: 3 Paroxysmal Sweats: 1-Minimal Palms Moist Orientation: 1-Uncertain about Date Tacttile Disturbances: 1-Very Mild Itch/Numbness Auditory Disturbances: 0-None Visual Disturbances: 0-None Headache: 0-None Present CIWA-Ar Total Score: 14 BHS Progress Note (SOAP) Subjective: sweat tremor anxiety restlessness Objective: 05/05/18 16:29 Vital Signs Temperature 98.6 F 05/05/18 13:12 Pulse Rate 72 05/05/18 13:12 Respiratory Rate 18 05/05/18 13:12 Blood Pressure 108/69 05/05/18 13:12 O2 Sat by Pulse Oximetry (%) Laboratory Last Values WBC 5.5 K/mm3 (4.0-10.0) 05/05/18 06:00 RBC 5.14 M/mm3 (4.00-5.60) 05/05/18 06:00 Hgb 13.7 GM/dL (11.7-16.9) 05/05/18 06:00 Hct 42.1 % (35.4-49) 05/05/18 06:00 MCV 81.9 fl (80-96) 05/05/18 06:00 MCH 26.7 pg (25.7-33.7) 05/05/18 06:00 MCHC 32.6 g/dl (32.0-35.9) 05/05/18 06:00 RDW 16.4 % (11.9-15.9) H 05/05/18 06:00 Plt Count 196 K/MM3 (134-434) 05/05/18 06:00 MPV 9.1 fl (7.5-11.1) 05/05/18 06:00 Sodium 142 mmol/L (136-145) 05/05/18 06:00 Potassium 3.8 mmol/L (3.5-5.1) 05/05/18 06:00 Chloride 107 mmol/L (98-107) 05/05/18 06:00 Carbon Dioxide 24 mmol/L (21-32) 05/05/18 06:00 Anion Gap 11 MMOL/L (8-16) 05/05/18 06:00 BUN 17 mg/dL (7-18) 05/05/18 06:00 Creatinine 1.2 mg/dL (0.55-1.3) 05/05/18 06:00 Creat Clearance w eGFR > 60 (>60) 05/05/18 06:00 Random Glucose 106 mg/dL (74-106) 05/05/18 06:00 Calcium 8.9 mg/dL (8.5-10.1) 05/05/18 06:00 Total Bilirubin 0.7 mg/dL (0.2-1) 05/05/18 06:00 AST 54 U/L (15-37) H 05/05/18 06:00 ALT 61 U/L (13-61) 05/05/18 06:00 Alkaline Phosphatase 63 U/L (45-117) 05/05/18 06:00 Total Protein 7.1 g/dl (6.4-8.2) 05/05/18 06:00 Albumin 3.7 g/dl (3.4-5.0) 05/05/18 06:00 Urine Color Yellow 05/04/18 15:00 Urine Appearance Cloudy 05/04/18 15:00 Urine pH 5.0 (5.0-8.0) 05/04/18 15:00 Ur Specific [place] 1.023 (1.001-1.035) 05/04/18 15:00 Urine Protein Negative (NEGATIVE) 05/04/18 15:00 Urine Glucose (UA) Negative (NEGATIVE) 05/04/18 15:00 Urine Ketones Negative (NEGATIVE) 05/04/18 15:00 Urine Blood Negative (NEGATIVE) 05/04/18 15:00 Urine Nitrite Negative (NEGATIVE) 05/04/18 15:00 Urine Bilirubin Negative (<2.0 mg/dL) 05/04/18 15:00 Urine Urobilinogen 4.0 e.u/dl mg/dL (0.2-1.0) 05/04/18 15:00 Ur Leukocyte Esterase Negative (NEGATIVE) 05/04/18 15:00 RPR Titer Nonreactive (NONREACTIVE) 05/05/18 06:00 lab noted Assessment: 05/05/18 16:32 withdrawal sx Plan: continue detox
[2018-05-05] MEDS ORDERED: OLANZapine 5 MG TABLET PO SCH (22:00)
[2018-05-05] MEDS ORDERED: OLANZapine 10 MG TABLET PO SCH (22:00)
[2018-05-05] MEDS: DIVALPROEX SODIUM 500 MG TABLET E.C. PO SCH (22:13)
[2018-05-05] MEDS: THIAMINE HCL 100 MG TABLET (FP) PO SCH (22:13)
[2018-05-06] MEDS: GABAPENTIN 400 MG CAPSULE (FP) PO SCH ×3 (06:45→22:04)
[2018-05-06] MEDS: PRENATAL VITAMINS W/ FOLIC ACID TABLET (FP) PO SCH (10:49)
[2018-05-06] MEDS: DIVALPROEX SODIUM 500 MG TABLET E.C. PO SCH ×2 (10:49→22:04)
[2018-05-06] MEDS: SERTRALINE HCL 50 MG TABLET (FP) PO SCH (10:49)
[2018-05-06] MEDS: BUDESONIDE/FORMETEROL FUMARATE 80/4.5 mcg INHALER IH SCH ×2 (10:49→22:04)
[2018-05-06] MEDS: diazePAM 5 MG TABLET PO SCH ×2 (10:49→22:04)
[2018-05-06] MEDS: BUPRENORPHINE/NALOXONE 8 MG/2 MG FILM PACKET SL SCH ×2 (10:50→22:54)
--- NOTE | 2018-05-06 15:09 | PN ---
S CIWA - CIWA Score Nausea/Vomitin-No Nausea/No Vomiting Muscle Tremors: 3 Anxiety: 2 Agitation: 3 Paroxysmal Sweats: 1-Minimal Palms Moist Orientation: 0-Oriented Tacttile Disturbances: 1-Very Mild Itch/Numbness Auditory Disturbances: 0-None Visual Disturbances: 0-None Headache: 0-None Present CIWA-Ar Total Score: 10 BHS Progress Note (SOAP) Subjective: sweat tremor restlessness Objective: 05/06/18 15:08 Vital Signs Temperature 97.5 F L 05/06/18 13:28 Pulse Rate 70 05/06/18 13:28 Respiratory Rate 18 05/06/18 13:28 Blood Pressure 119/66 05/06/18 13:28 O2 Sat by Pulse Oximetry (%) Laboratory Last Values WBC 5.5 K/mm3 (4.0-10.0) 05/05/18 06:00 RBC 5.14 M/mm3 (4.00-5.60) 05/05/18 06:00 Hgb 13.7 GM/dL (11.7-16.9) 05/05/18 06:00 Hct 42.1 % (35.4-49) 05/05/18 06:00 MCV 81.9 fl (80-96) 05/05/18 06:00 MCH 26.7 pg (25.7-33.7) 05/05/18 06:00 MCHC 32.6 g/dl (32.0-35.9) 05/05/18 06:00 RDW 16.4 % (11.9-15.9) H 05/05/18 06:00 Plt Count 196 K/MM3 (134-434) 05/05/18 06:00 MPV 9.1 fl (7.5-11.1) 05/05/18 06:00 Sodium 142 mmol/L (136-145) 05/05/18 06:00 Potassium 3.8 mmol/L (3.5-5.1) 05/05/18 06:00 Chloride 107 mmol/L (98-107) 05/05/18 06:00 Carbon Dioxide 24 mmol/L (21-32) 05/05/18 06:00 Anion Gap 11 MMOL/L (8-16) 05/05/18 06:00 BUN 17 mg/dL (7-18) 05/05/18 06:00 Creatinine 1.2 mg/dL (0.55-1.3) 05/05/18 06:00 Creat Clearance w eGFR > 60 (>60) 05/05/18 06:00 Random Glucose 106 mg/dL (74-106) 05/05/18 06:00 Calcium 8.9 mg/dL (8.5-10.1) 05/05/18 06:00 Total Bilirubin 0.7 mg/dL (0.2-1) 05/05/18 06:00 AST 54 U/L (15-37) H 05/05/18 06:00 ALT 61 U/L (13-61) 05/05/18 06:00 Alkaline Phosphatase 63 U/L (45-117) 05/05/18 06:00 Total Protein 7.1 g/dl (6.4-8.2) 05/05/18 06:00 Albumin 3.7 g/dl (3.4-5.0) 05/05/18 06:00 Urine Color Yellow 05/04/18 15:00 Urine Appearance Cloudy 05/04/18 15:00 Urine pH 5.0 (5.0-8.0) 05/04/18 15:00 Ur Specific [place] 1.023 (1.001-1.035) 05/04/18 15:00 Urine Protein Negative (NEGATIVE) 05/04/18 15:00 Urine Glucose (UA) Negative (NEGATIVE) 05/04/18 15:00 Urine Ketones Negative (NEGATIVE) 05/04/18 15:00 Urine Blood Negative (NEGATIVE) 05/04/18 15:00 Urine Nitrite Negative (NEGATIVE) 05/04/18 15:00 Urine Bilirubin Negative (<2.0 mg/dL) 05/04/18 15:00 Urine Urobilinogen 4.0 e.u/dl mg/dL (0.2-1.0) 05/04/18 15:00 Ur Leukocyte Esterase Negative (NEGATIVE) 05/04/18 15:00 RPR Titer Nonreactive (NONREACTIVE) 05/05/18 06:00 lab noted Assessment: 05/06/18 15:09 withdrawal sx Plan: continue detox
--- NOTE | 2018-05-06 16:47 | PN ---
[facility] Progress Note Note: Psychiatric nurse practitioner note: Pt. currently on zyprexa 5mg qhs. As per patient and pharmacy claims he is prescribed zyprexa 20mg but reported nonadherence to medication regime. Current plan is to titrate zyprexa to 10mg. Pt. able to tolerate zyprexa 5mg. No adverse effects noted. Will order zyprexa 10mg. Verbal consent given. Depakote level 33.4 on 05/06/18.
[2018-05-06] MEDS: OLANZapine 10 MG TABLET PO SCH (22:04)
[2018-05-06] MEDS: THIAMINE HCL 100 MG TABLET (FP) PO SCH (22:04)
[2018-05-07] MEDS: GABAPENTIN 400 MG CAPSULE (FP) PO SCH ×3 (06:15→22:15)
[2018-05-07] MEDS: diazePAM 5 MG TABLET PO SCH ×2 (10:09→22:15)
[2018-05-07] MEDS: PRENATAL VITAMINS W/ FOLIC ACID TABLET (FP) PO SCH (10:09)
[2018-05-07] MEDS: DIVALPROEX SODIUM 500 MG TABLET E.C. PO SCH ×2 (10:09→22:15)
[2018-05-07] MEDS: BUDESONIDE/FORMETEROL FUMARATE 80/4.5 mcg INHALER IH SCH ×2 (10:09→22:15)
[2018-05-07] MEDS: SERTRALINE HCL 50 MG TABLET (FP) PO SCH (10:09)
[2018-05-07] MEDS: BUPRENORPHINE/NALOXONE 8 MG/2 MG FILM PACKET SL SCH ×2 (10:09→22:19)
[2018-05-07] MEDS ORDERED: ONDANSETRON *ODT* 4 MG TABLET SL PRN (10:12)
--- NOTE | 2018-05-07 10:46 | PN ---
[facility] Progress Note Note: Vital Signs Temperature 97.5 F L 05/07/18 09:08 Pulse Rate 74 05/07/18 09:08 Respiratory Rate 18 05/07/18 09:08 Blood Pressure 109/74 05/07/18 09:08 O2 Sat by Pulse Oximetry (%) Laboratory Last Values WBC 5.5 K/mm3 (4.0-10.0) 05/05/18 06:00 RBC 5.14 M/mm3 (4.00-5.60) 05/05/18 06:00 Hgb 13.7 GM/dL (11.7-16.9) 05/05/18 06:00 Hct 42.1 % (35.4-49) 05/05/18 06:00 MCV 81.9 fl (80-96) 05/05/18 06:00 MCH 26.7 pg (25.7-33.7) 05/05/18 06:00 MCHC 32.6 g/dl (32.0-35.9) 05/05/18 06:00 RDW 16.4 % (11.9-15.9) H 05/05/18 06:00 Plt Count 196 K/MM3 (134-434) 05/05/18 06:00 MPV 9.1 fl (7.5-11.1) 05/05/18 06:00 Sodium 142 mmol/L (136-145) 05/05/18 06:00 Potassium 3.8 mmol/L (3.5-5.1) 05/05/18 06:00 Chloride 107 mmol/L (98-107) 05/05/18 06:00 Carbon Dioxide 24 mmol/L (21-32) 05/05/18 06:00 Anion Gap 11 MMOL/L (8-16) 05/05/18 06:00 BUN 17 mg/dL (7-18) 05/05/18 06:00 Creatinine 1.2 mg/dL (0.55-1.3) 05/05/18 06:00 Creat Clearance w eGFR > 60 (>60) 05/05/18 06:00 Random Glucose 106 mg/dL (74-106) 05/05/18 06:00 Calcium 8.9 mg/dL (8.5-10.1) 05/05/18 06:00 Total Bilirubin 0.7 mg/dL (0.2-1) 05/05/18 06:00 AST 54 U/L (15-37) H 05/05/18 06:00 ALT 61 U/L (13-61) 05/05/18 06:00 Alkaline Phosphatase 63 U/L (45-117) 05/05/18 06:00 Total Protein 7.1 g/dl (6.4-8.2) 05/05/18 06:00 Albumin 3.7 g/dl (3.4-5.0) 05/05/18 06:00 Urine Color Yellow 05/04/18 15:00 Urine Appearance Cloudy 05/04/18 15:00 Urine pH 5.0 (5.0-8.0) 05/04/18 15:00 Ur Specific [place] 1.023 (1.001-1.035) 05/04/18 15:00 Urine Protein Negative (NEGATIVE) 05/04/18 15:00 Urine Glucose (UA) Negative (NEGATIVE) 05/04/18 15:00 Urine Ketones Negative (NEGATIVE) 05/04/18 15:00 Urine Blood Negative (NEGATIVE) 05/04/18 15:00 Urine Nitrite Negative (NEGATIVE) 05/04/18 15:00 Urine Bilirubin Negative (<2.0 mg/dL) 05/04/18 15:00 Urine Urobilinogen 4.0 e.u/dl mg/dL (0.2-1.0) 05/04/18 15:00 Ur Leukocyte Esterase Negative (NEGATIVE) 05/04/18 15:00 Valproic Acid 33.4 ug/ml (50-100) L 05/06/18 09:00 RPR Titer Nonreactive (NONREACTIVE) 05/05/18 06:00 Patient c/o of mild nausea and vomiting, anxious, back pain on suboxone maintenance therapy, reports wishes to detox of suboxone Patient currently stable, Aox3, anxious, no distress no adventitious breath sounds withdrawal sx increase po fluids zofran prn Patient informed to follow up with his provider who prescriber his suboxone regarding his desire to marium of suboxone therapy. Patient verbalizes understanding. d/c in AM
[2018-05-07] MEDS: CYCLOBENZAPRINE HCL 10 MG TABLET (FP) PO SCH ×2 (14:37→22:17)
[2018-05-07] MEDS: OLANZapine 10 MG TABLET PO SCH (22:16)
[2018-05-07] MEDS: THIAMINE HCL 100 MG TABLET (FP) PO SCH (22:16)
[2018-05-08] MEDS: GABAPENTIN 400 MG CAPSULE (FP) PO SCH (05:54)
[2018-05-08] MEDS: CYCLOBENZAPRINE HCL 10 MG TABLET (FP) PO SCH (05:54)
[2018-05-08 05:55] VITALS: BP 130/70; PULSE 82; TEMP 97.5
--- NOTE | 2018-05-08 09:08 | DS ---
[facility] Detox Discharge Summary Admission Date: 05/04/18 Discharge Date: 05/08/18 - History Present History: Alcohol Dependence, Cocaine Dependence, Opioid Dependence - Physical Exam Results Vital Signs: Vital Signs Temperature 97.5 F L 05/08/18 05:54 Pulse Rate 82 05/08/18 05:54 Respiratory Rate 18 05/08/18 05:54 Blood Pressure 130/70 05/08/18 05:54 O2 Sat by Pulse Oximetry (%) - Treatment Hospital Course: Detox Protocol Followed, Detoxed Safely, Responded well, Discharged Condition Good, Rehab Referral Accepted - Medication Discharge Medications: Ambulatory Orders Buprenorphine/Naloxone [Suboxone 8Mg/2Mg Sl Film -] 1 each SL BID 01/14/18 traZODone HCL [Trazodone HCl] 100 mg PO HS #30 tablet 01/15/18 Albuterol Sulfate Inhaler - [Ventolin HFA Inhaler -] 2 inh PO Q4H PRN #1 inhaler 01/18/18 Divalproex [Depakote -] 750 mg PO BID 05/04/18 Fluticasone Propionate [Flovent Diskus] 50 mcg IH DAILY MDD 2 PUFFS DAILY Sertraline HCl [Zoloft -] 50 mg PO DAILY 05/04/18 Divalproex Sodium [Depakote] 500 mg PO BID 05/05/18 Gabapentin 400 mg PO TID 05/05/18 Olanzapine [Zyprexa] 10 mg PO HS 05/05/18 Albuterol Sulfate Inhaler - [Ventolin HFA Inhaler -] 2 puff IH Q4H PRN #1 inhaler 05/07/18 - Diagnosis (1) Alcohol dependence with uncomplicated withdrawal Current Visit: Yes Status: Chronic (2) Anxiety and depression Current Visit: Yes Status: Chronic (3) Insomnia Current Visit: Yes Status: Chronic (4) Opioid dependence on agonist therapy Current Visit: Yes Status: Chronic (5) Bipolar disorder Current Visit: Yes Status: Chronic (6) Cocaine dependence Current Visit: Yes Status: Chronic Qualifiers: Substance use status: uncomplicated Qualified Code(s): F14.20 - Cocaine dependence, uncomplicated (7) Bipolar I disorder Current Visit: No Status: Acute (8) Drug-induced mood disorder Current Visit: No Status: Acute (9) Asthma Current Visit: No Status: Chronic Qualifiers: Asthma severity: mild Asthma persistence: intermittent Asthma complication type: unspecified Qualified Code(s): J45.20 - Mild intermittent asthma, uncomplicated (10) Encounter for monitoring Suboxone maintenance therapy Current Visit: No Status: Chronic (11) Depressed affect Current Visit: No Status: Suspected (12) Schizoaffective disorder Current Visit: No Status: Suspected - AMA Did Patient Leave Against Medical Advice: No
[2018-05-08] MEDS ORDERED: diazePAM 5 MG TABLET PO SCH (10:00)
== END 2018-05-08 08:51 | disposition home or self-care (01) | DRG 773 ==
LOC: YASAS 11:40 → Y6N 15:18
PROC: HZ2ZZZZ Detoxification Services for Substance Abuse Treatment (ICD-10-PCS; principal; 2018-05-04)
DX: F10.230 Alcohol dependence with withdrawal, uncomplicated (principal); F14.20 Cocaine dependence, uncomplicated; F11.20 Opioid dependence, uncomplicated; F25.9 Schizoaffective disorder, unspecified; F31.89 Other bipolar disorder; F19.24 Other psychoactive substance dependence with psychoactive substance-induced mood disorder; F41.8 Other specified anxiety disorders; G47.00 Insomnia, unspecified; J45.20 Mild intermittent asthma, uncomplicated; R45.89 Other symptoms and signs involving emotional state; Z51.81 Encounter for therapeutic drug level monitoring; Z59.0 Homelessness
CPT/HCPCS: 36415; 80053; 80164; 81003; 85027; 86593; 93005; 93010

== ENCOUNTER 2020-05-12 11:14 | Inpatient (IN) | payer BC ==
--- NOTE | 2020-05-12 11:39 | BHS.RME ---
Substance Use & Tx History - Substance Use History Alcohol Substance amount: 3 six pack and shots of hard liquor Frequency of use: Daily Substance route: Oral Date of Last Use: 05/12/20 (startedm age 11 and last drank 3AM today) Cocaine- Powder Substance amount: $50 Frequency of use: Less than 5 times a year Substance route: Inhalation (ex: sniffing or snorting) Date of Last Use: 05/08/20 Marijuana/Hashish Substance amount: 1 joint Frequency of use: Less than 3 times per week Substance route: Smoking Date of Last Use: 05/07/20 - Last Treatment Date of last treatment: 2018 completed Treatment type: Substance Use Disorder ([facility]) Where was last treatment: Detox Physical/Psych/Mental Status - Behavior General Behavior: Increased activity (restlessness, agitation) Eye Contact: Normal - Cooperativeness Cooperativeness: Cooperative - Thinking Thought Processes: Tight, Logical, Goal Directed - Physical Health Problems Is patient presently having any pain?: No Does patient presently have any injuries (include location): No Does patient currently have a fever: No Is patient : No CIWA Nausea/Vomitin Muscle Tremors: 4-Moderate,w/Arms Extend Anxiety: 4-Mod. Anxious/Guarded Agitation: 6 Paroxysmal Sweats: 2 Orientation: 0-Oriented Tacttile Disturbances: 0-None Auditory Disturbances: 0-None Visual Disturbances: 0-None Headache: 1-Very Mild CIWA-Ar Total Score: 19
--- NOTE | 2020-05-12 12:11 | HP ---
CIWA Score Nausea/Vomitin Muscle Tremors: 4-Moderate,w/Arms Extend Anxiety: 4-Mod. Anxious/Guarded Agitation: 6 Paroxysmal Sweats: 2 Orientation: 0-Oriented Tacttile Disturbances: 0-None Auditory Disturbances: 0-None Visual Disturbances: 0-None Headache: 1-Very Mild CIWA-Ar Total Score: 19 - Admission Criteria OASAS Guidelines: Admission for Medically Managed Detox: Requires at least one of the followin. CIWA greater than 12 2. Seizures within the past 24 hours 3. Delirium tremens within the past 24 hours 4. Hallucinations within the past 24 hours 5. Acute intervention needed for co occurring medical disorder 6. Acute intervention needed for co occurring psychiatric disorder 7. Severe withdrawal that cannot be handled at a lower level of care (continued vomiting, continued diarrhea, abnormal vital signs) requiring intravenous medication and/or fluids 8. Admitting History and Physical - Smoking History Smoking history: Never smoked Have you smoked in the past 12 months: No - Alcohol/Substance Use Hx Alcohol Use: Yes Admission ROS [facility] Chief Complaint: " I want to stop drinking and get my life together." Allergies/Adverse Reactions: Allergies Allergy/AdvReac Type Severity Reaction Status Date / Time chlordiazepoxide Allergy Severe Swelling Verified 05/04/18 12:24 [From Librium] Fish Containing Products Allergy Severe Swelling Verified 05/04/18 12:46 haloperidol AdvReac Intermediate STIFFNESS Verified 05/04/18 12:45 History of Present Illness: 50 year old male with history of alcohol dependence with withdrawals, cocaine use disorder, cannabis use disorder seeking detox from alcohol. 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 daily Cocaine- Powder Substance amount: $50 Frequency of use: Less than 5 times a year Substance route: Inhalation (ex: sniffing or snorting) Date of Last Use: 05/08/20 Marijuana/Hashish Substance amount: 1 joint Frequency of use: Less than 3 times per week Substance route: Smoking Date of Last Use: 05/07/20 - Last Treatment Date of last treatment: 2018 completed Treatment type: Substance Use Disorder (NAMAN) Where was last treatment: Detox PMH: aSTHMA pSURG: lEFT FOOT BUNIONECTOMY,Umbilical Hernia repair 2000 pSYCH: dEPRESSION - ON NO MEDS - 1 YEAR AGO Lives in own apartment in the [place] alone, no legal issues pending. All: Librium - causes rash and pruritus CIWA=19 ROMEL=0 Urine Tox: THC, AMIRA Exam Limitations: No Limitations - Ebola screening Have you traveled outside of the country in the last 21 days: No Have you had contact with anyone from an Ebola affected area: No Have you been sick,other than usual withdrawal symptoms: No Do you have a fever: No - Review of Systems Constitutional: Chills, Diaphoresis EENT: reports: No Symptoms Reported Respiratory: reports: No Symptoms reported Cardiac: reports: No Symptoms Reported GI: reports: No Symptoms Reported : reports: No Symptoms Reported Musculoskeletal: reports: No Symptoms Reported Integumentary: reports: No Symptoms Reported Neuro: reports: Headache, Tremors Endocrine: reports: No Symptoms Reported Hematology: reports: No Symptoms Reported Psychiatric: reports: Judgement Intact, Mood/Affect Appropiate, Orientated x3, Agitated, Anxious Other Systems: Reviewed and Negative Patient History - Patient Medical History Hx Anemia: No Hx Asthma: Yes (on albuterol inhaler) Hx Chronic Obstructive Pulmonary Disease (COPD): No Hx Cancer: No Hx Cardiac Disorders: No Hx Congestive Heart Failure: No Hx Hypertension: No Hx Hypercholesterolemia: No Hx Pacemaker: No HX Cerebrovascular Accident: No Hx Seizures: No Hx Dementia: No Hx Diabetes: No Hx Gastrointestinal Disorders: No Hx Liver Disease: No Hx Genitourinary Disorders: No Hx Sexually Transmitted Disorders: No Hx Renal Disease (ESRD): No Hx Thyroid Disease: No Hx Human Immunodeficiency Virus (HIV): No (last 2014 negative) Hx Hepatitis C: No Hx Depression: Yes Hx Suicide Attempt: Yes (2016, pill overdose) Hx Bipolar Disorder: No Hx Schizophrenia: No - Patient Surgical History Past Surgical History: Yes Hx Neurologic Surgery: No Hx Cataract Extraction: No Hx Cardiac Surgery: No Hx Lung Surgery: No Hx Breast Surgery: No Hx Breast Biopsy: No Hx Abdominal Surgery: Yes (hernia repair umbilical in 2003) Hx Appendectomy: No Hx Cholecystectomy: No Hx Genitourinary Surgery: No Hx Section: No Hx Orthopedic Surgery: No Anesthesia Reaction: No - PPD History Previous Implant?: Yes Documented Results: Negative w/proof Implanted On Prior R Admission?: Yes Date: 01/14/18 Results: 0 mm PPD to be Administered?: Yes - Smoking Cessation Smoking history: Never smoked Have you smoked in the past 12 months: No Hx Chewing Tobacco Use: No Initiated information on smoking cessation: No - Substances abused Alcohol Substance route: Oral Frequency: Daily Amount used: 3 six packs beer Age of first use: 11 Date of last use: 05/12/20 Cocaine Substance route: Inhalation Frequency: Daily Amount used: $50 Age of first use: 30 Date of last use: 05/08/20 Marijuana/Hashish Substance route: Smoking Frequency: 1-2 times per week Amount used: 1 joint Age of first use: 13 Date of last use: 05/07/20 Admission Physical Exam BHS - Physical General Appearance: Yes: Moderate Distress, Thin, Tremorous, Irritable, S weating, Anxious HEENTM: Yes: EOMI, Hearing grossly Normal, Normal ENT Inspection, Normocephalic, Normal Voice, MELISSA, Pharynx Normal, Tm's normal Respiratory: Yes: Chest Non-Tender, Lungs Clear, Normal Breath Sounds, No Respiratory Distress, No Accessory Muscle Use Neck: Yes: No masses,lesions,Nodules, Supple, Trachea in good position Breast: Yes: Within Normal Limits Cardiology: Yes: Regular Rhythm, Regular Rate, S1, S2 Abdominal: Yes: Normal Bowel Sounds, Non Tender, Flat, Soft, Surgical Scar, Other (umbilical hernia repair failing. weakness in abdominal wall with protrustion through hernia scar.) Genitourinary: Yes: Within Normal Limits Back: Yes: Normal Inspection Musculoskeletal: Yes: full range of Motion, Gait Steady, Pelvis Stable Extremities: Yes: Normal Capillary Refill, Normal Inspection, Normal Range of Motion, Non-Tender Neurological: Yes: manager of software development II-XII NML intact, Fully Oriented, Alert, Motor Strength 5/5, Normal Mood/Affect, Normal Response Integumentary: Yes: Normal Color, Warm Lymphatic: Yes: Within Normal Limits - Diagnostic (1) Alcohol dependence with uncomplicated withdrawal Current Visit: No Status: Chronic (2) Anxiety and depression Current Visit: No Status: Chronic (3) Asthma Current Visit: No Status: Chronic Qualifiers: Asthma severity: mild Asthma persistence: intermittent Asthma complication type: unspecified Qualified Code(s): J45.20 - Mild intermittent asthma, uncomplicated (4) Cocaine dependence Current Visit: No Status: Chronic Qualifiers: Substance use status: uncomplicated Qualified Code(s): F14.20 - Cocaine dependence, uncomplicated Cleared for Admission S - Detox or Rehab [facility] Level of Care: Medically Managed Detox Regimen/Protocol: Ativan Claeared for Rehab Admission: No Screened but not Admitted - Documentation of Visit Screened but not Admitted: No Breathalyzer - Breathalyzer Breathalyzer: 0 Vital Signs - Vital Signs Vital signs refused: No Temperature: 97.0 F Pulse Rate: 79 Respiratory Rate: 10 Blood Pressure: 122/78 BP Location: Right Arm Blood Pressure position: Sitting - Height Height: 5 ft 7 in - Weight Weight: 173 lb Weight measurement method: Standing scale - BMI Body Mass Index (BMI): 27.1 - Bowel Function Bowel Movement: No Inpatient Rehab Admission - Rehab Decision to Admit Inpatient rehab admission?: No
[2020-05-12 12:22] VITALS: BMI 27.1
[2020-05-12] MEDS ORDERED: METHOCARBAMOL 500 MG TABLET PO PRN (12:23)
[2020-05-12] MEDS ORDERED: MAGNESIUM CITRATE 300 ML BOTTLE PO PRN (12:23)
[2020-05-12] MEDS ORDERED: MAG HYDROX/AL HYDROX/SIMETH 30 ML UNIT-DOSE CUP PO PRN (12:23)
[2020-05-12] MEDS ORDERED: MENTHOL/PHENOL 1 EACH UD MM PRN (12:23)
[2020-05-12] MEDS ORDERED: MAGNESIUM HYDROX 2400MG/30ML ORAL SUSPENSION 30 ML CUP PO PRN (12:23)
[2020-05-12] MEDS ORDERED: ACETAMINOPHEN 325 MG TABLET (FP) PO PRN ×2 (12:23)
[2020-05-12] MEDS ORDERED: ONDANSETRON *ODT* 4 MG TABLET SL PRN (12:23)
[2020-05-12] MEDS ORDERED: NICOTINE POLACRILEX 2 MG GUM BUC PRN (12:23)
[2020-05-12] MEDS ORDERED: IBUPROFEN 400 MG TABLET (FP) PO PRN (12:23)
[2020-05-12] MEDS ORDERED: BISMUTH SUBSALICYLATE 262 MG/15 ML BTL PO PRN (12:23)
[2020-05-12] MEDS ORDERED: ALBUTEROL SO4 HFA INHALER IH PRN (12:25)
[2020-05-12] MEDS: LORazepam 1 MG TABLET PO PRN (13:54)
[2020-05-12] MEDS: hydrOXYzine PAMOATE 25 MG CAPSULE (FP) PO SCH ×3 (13:55→22:41)
[2020-05-12] MEDS: LORazepam 2 MG TABLET PO SCH ×3 (14:00→22:41)
[2020-05-12] MEDS: NICOTINE 7 MG/24 HOURS TOPICAL PATCH TD SCH (14:02)
[2020-05-12] MEDS: PRENATAL VITAMINS W/ FOLIC ACID TABLET (FP) PO SCH (14:02)
[2020-05-12 14:38] LABS: HEMATOCRIT 44.4 % (35.4-49); HEMOGLOBIN 14.9 GM/dL (11.7-16.9); MCH 27.9 pg (25.7-33.7); MCHC 33.6 g/dl (32.0-35.9); MEAN CELL VOLUME 83.1 fl (80-96); MEAN PLT VOLUME 8.1 fl (7.5-11.1); PLATELET COUNT 235 K/MM3 (134-434); RBC 5.35 M/mm3 (4.00-5.60); RDW 15.2 % (11.9-15.9); WHITE BLOOD COUNT 5.9 K/mm3 (4.0-10.0)
[2020-05-12 14:51] LABS: ALBUMIN 3.9 g/dl (3.4-5.0); BILIRUBIN,TOTAL 1.2 mg/dL (0.2-1); BLOOD UREA NITROGEN 21.1 mg/dL (7-18); CALCIUM 8.6 mg/dL (8.5-10.1); CREATININE 1.4 mg/dL (0.55-1.3); POTASSIUM 3.5 mmol/L (3.5-5.1); TOT PROT 7.4 g/dl (6.4-8.2)
[2020-05-12] MEDS: THIAMINE HCL 100 MG TABLET (FP) PO SCH (22:41)
[2020-05-12] MEDS: MOMETASONE FUROATE 110 MCG/IH INHALER IH SCH (22:41)
[2020-05-12] MEDS: MELATONIN 5 MG TABLETS PO SCH (22:41)
[2020-05-13] MEDS: LORazepam 2 MG TABLET PO SCH ×4 (05:59→22:10)
[2020-05-13] MEDS: hydrOXYzine PAMOATE 25 MG CAPSULE (FP) PO SCH ×5 (05:59→22:10)
[2020-05-13] MEDS ORDERED: PATIENT'S OWN MEDICATION (NON-FORMULARY) (Fluticasone Propionate [Flovent Diskus] 50 MCG) IH SCH (10:00)
--- NOTE | 2020-05-13 10:03 | PN ---
[facility] CIWA - CIWA Score Nausea/Vomitin-No Nausea/No Vomiting Muscle Tremors: 2 Anxiety: 3 Agitation: 1-Slight > Activity Paroxysmal Sweats: 3 Orientation: 0-Oriented Tacttile Disturbances: 0-None Auditory Disturbances: 0-None Visual Disturbances: 0-None Headache: 2-Mild CIWA-Ar Total Score: 11 S Progress Note (SOAP) Subjective: c/o anxiety, sweats, headache, shakes, and body aches. Objective: Vital Signs 05/13/20 05/13/20 06:08 09:07 Temperature 97.3 F L 97.5 F L Pulse Rate 69 73 Respiratory 18 18 Rate Blood Pressure 115/73 100/59 L O2 Sat by Pulse 99 Oximetry (%) Laboratory Last Values WBC 5.9 K/mm3 (4.0-10.0) 05/12/20 12:15 RBC 5.35 M/mm3 (4.00-5.60) 05/12/20 12:15 Hgb 14.9 GM/dL (11.7-16.9) 05/12/20 12:15 Hct 44.4 % (35.4-49) 05/12/20 12:15 MCV 83.1 fl (80-96) 05/12/20 12:15 MCH 27.9 pg (25.7-33.7) 05/12/20 12:15 MCHC 33.6 g/dl (32.0-35.9) 05/12/20 12:15 RDW 15.2 % (11.9-15.9) 05/12/20 12:15 Plt Count 235 K/MM3 (134-434) 05/12/20 12:15 MPV 8.1 fl (7.5-11.1) D 05/12/20 12:15 Sodium 139 mmol/L (136-145) 05/12/20 12:15 Potassium 3.5 mmol/L (3.5-5.1) 05/12/20 12:15 Chloride 105 mmol/L (98-107) 05/12/20 12:15 Carbon Dioxide 27 mmol/L (21-32) 05/12/20 12:15 Anion Gap 7 MMOL/L (8-16) L 05/12/20 12:15 BUN 21.1 mg/dL (7-18) H 05/12/20 12:15 Creatinine 1.4 mg/dL (0.55-1.3) H 05/12/20 12:15 Est GFR (CKD-EPI)AfAm 66.48 05/12/20 12:15 Est GFR (CKD-EPI)NonAf 57.36 05/12/20 12:15 Random Glucose 119 mg/dL (74-106) H 05/12/20 12:15 Calcium 8.6 mg/dL (8.5-10.1) 05/12/20 12:15 Total Bilirubin 1.2 mg/dL (0.2-1) H 05/12/20 12:15 AST 26 U/L (15-37) 05/12/20 12:15 ALT 26 U/L (13-61) 05/12/20 12:15 Alkaline Phosphatase 69 U/L (45-117) 05/12/20 12:15 Total Protein 7.4 g/dl (6.4-8.2) 05/12/20 12:15 Albumin 3.9 g/dl (3.4-5.0) 05/12/20 12:15 Syphilis Serology Non-reactive (NONREACTIVE) 05/12/20 12:15 COVID-19 (BOLIVAR) Not detected (Not Detected) 05/12/20 13:00 Labs noted. Assessment: 05/13/20 10:04 AOX3, in no acute respiratory distress. Full ROM, ambulating in the unit. Withdrawal symptoms. Plan: continue detox.
[2020-05-13] MEDS: PRENATAL VITAMINS W/ FOLIC ACID TABLET (FP) PO SCH (11:02)
[2020-05-13] MEDS: MOMETASONE FUROATE 110 MCG/IH INHALER IH SCH ×2 (11:03→22:10)
[2020-05-13] MEDS: NICOTINE 7 MG/24 HOURS TOPICAL PATCH TD SCH (11:03)
--- NOTE | 2020-05-13 11:10 | CONSULT ---
[facility] Psychiatric Consult - Data Date of interview: 05/13/20 Admission source: [facility] Identifying data: Revisit to [facility] and admission to [address] [place] [address] for this 50 y/o AA male self-referred for detoxification treatment. NAMAN issues : alcohol, cannabis, cocaine. Patient identifies self as , father of seven (claimed four dependents at a previous interview), domiciled, unemployed and supported on unemployment benefits. Substance Abuse History: Discussed with the patient. NAMAN profile as follows : Smoking history: Never smoked. Have you smoked in the past 12 months: No. Hx Chewing Tobacco Use: No. Initiated information on smoking cessation: No. Substances abused. Alcohol. Substance route: Oral. Frequency: Daily. Amount used: 3 six packs beer. Age of first use: 11. Date of last use: 05/12/20. Cocaine. Substance route: Inhalation. Frequency: Daily. Amount used: $50. Age of first use: 30. Date of last use: 05/08/20. Marijuana/Hashish. Substance route: Smoking. Frequency: 1-2 times per week. Amount used: 1 joint. Age of first use: 13. Date of last use: 05/07/20. Alcohol. Substance amount: 3 six pack and shots of hard liquor. Frequency of use: Daily. Substance route: Oral. Date of Last Use: 05/12/20 (started age 11 and last drank 3AM today). 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 Cocaine- Powder. Substance amount: $50. Frequency of use: Less than 5 times a year. Substance route: Inhalation (ex: sniffing or snorting). Date of Last Use: 05/08/20. Marijuana/Hashish. Substance amount: 1 joint. Frequency of use: Less than 3 times per week. Substance route: Smoking. Date of Last Use: 05/07/20. Last Treatment. Date of last treatment: 2018 completed. Treatment type: Substance Use Disorder (NAMAN). Where was last treatment: Detox. History of multiple NAMAN treatment failures. Medical History: Medical profile is remarkable for bronchial asthma, antecedent of umbilical herniorraphy and history of bunionectomy (left foot). Psychiatric History: Patient presents with a history of multiple psychiatric hospitalizations ([facility] + [facility] + [facility] + [facility] + [facility]). Diagnosed with Bipolar Disorder and prescribed (self-report) zyprexa + depakote. Doses not recalled by the patient. Mr Collins is known to the [facility] ([facility]) but he indicates that he has been using CPEP settings to obtain medications refills instead of maintaining contact with a regular [facility] care provider. Records also list gabapentin + zoloft as medications prescribed in the past. Patient endorses history of multiple suicide attempts via various means (overdose with pills, self-mutilation). Last attempt, an overdose with medications, occurred in 2016 (patient's own report). Physical/Sexual Abuse/Trauma History: Patient denies. Additional Comment: Urine Toxicology : cannabis, cocaine. Noted. Mental Status Exam - Mental Status Exam Alert and Oriented to: Time, Place, Person Cognitive Function: Grossly Intact Patient Appearance: Unkempt, Disheveled Mood: Withdrawn, Irritable Affect: Mood Congruent, Constricted Patient Behavior: Fatigued, Cooperative (marginally cooperative) Speech Pattern: Delayed, Slurred Voice Loudness: Normal Thought Process: Goal Oriented Thought Disorder: Not Present Hallucinations: Denies Suicidal Ideation: Denies Homicidal Ideation: Denies Insight/Judgement: Poor Sleep: Well Appetite: Good Gait/Station: Other (not observed out of bed) Psychiatric Findings - Problem List ([place] 1, 2,3) (1) Alcohol dependence with uncomplicated withdrawal Current Visit: Yes Status: Chronic (2) Cannabis dependence Current Visit: Yes Status: Chronic (3) Cocaine dependence Current Visit: Yes Status: Chronic Qualifiers: Substance use status: uncomplicated Qualified Code(s): F14.20 - Cocaine dependence, uncomplicated (4) Substance induced mood disorder Current Visit: Yes Status: Chronic (5) Schizoaffective disorder Current Visit: Yes Status: Chronic - Initial Treatment Plan Initial Treatment Plan: Psychoeducation. Sleep hygiene. Detoxification in progress. Patient has requested the inclusion of olanzapine + valproate in this regimen of medications. Food Consultant contacted pharmacist at [facility] ([phone]) : most recent scripts were for depakote 500 mg/bid + zyprexa 10 mg/hs on 02/24/20 ; no trazodone or sertraline since August 2019. Ordered, with this patient's informed consent : depakote 500 mg po bid + zyprexa 10 mg po hs. Side effects/benefits discussed in this session. Valproic acid level requested. Observation.
[2020-05-13] MEDS: LORazepam 1 MG TABLET PO PRN (18:11)
[2020-05-13] MEDS: OLANZapine 10 MG TABLET PO SCH (22:10)
[2020-05-13] MEDS: MELATONIN 5 MG TABLETS PO SCH (22:10)
[2020-05-13] MEDS: DIVALPROEX SODIUM 500 MG TABLET E.C. PO SCH (22:10)
[2020-05-13] MEDS: THIAMINE HCL 100 MG TABLET (FP) PO SCH (22:10)
[2020-05-14] MEDS: hydrOXYzine PAMOATE 25 MG CAPSULE (FP) PO SCH ×5 (05:55→22:26)
[2020-05-14] MEDS: LORazepam 1 MG TABLET PO SCH ×4 (05:55→22:25)
[2020-05-14] MEDS: MOMETASONE FUROATE 110 MCG/IH INHALER IH SCH ×2 (10:56→22:26)
[2020-05-14] MEDS: DIVALPROEX SODIUM 500 MG TABLET E.C. PO SCH ×2 (10:56→22:26)
[2020-05-14] MEDS: NICOTINE 7 MG/24 HOURS TOPICAL PATCH TD SCH (10:57)
[2020-05-14] MEDS: PRENATAL VITAMINS W/ FOLIC ACID TABLET (FP) PO SCH (10:57)
--- NOTE | 2020-05-14 13:06 | PN ---
[facility] CIWA - CIWA Score Nausea/Vomitin-Mild Nausea/No Vomiting Muscle Tremors: 2 Anxiety: 2 Agitation: 0-Normal Activity Paroxysmal Sweats: No Perspiration Orientation: 0-Oriented Tacttile Disturbances: 0-None Auditory Disturbances: 0-None Visual Disturbances: 2-Mild Sensitivity Headache: 2-Mild CIWA-Ar Total Score: 9 BHS Progress Note (SOAP) Subjective: 50 years old male was admitted on 05/12/20 for alcohol withdrawal sx management treating with ativan detox regiment feels ok to day less tremor mild anxiety ate breakfast in room resting in bed comfortably encourage mr ott to consider aftercare for alcohol abuse treatment Objective: 05/14/20 13:07 Vital Signs - 24 hr 05/13/20 05/13/20 05/14/20 16:37 20:38 09:10 Temperature 97.1 F L 97.3 F L 98.0 F Pulse Rate 77 79 68 Respiratory 18 18 18 Rate Blood Pressure 101/65 117/71 96/66 O2 Sat by Pulse 95 Oximetry (%) Laboratory Tests 05/12/20 05/12/20 05/12/20 12:15 12:15 12:15 WBC 5.9 RBC 5.35 Hgb 14.9 Hct 44.4 MCV 83.1 MCH 27.9 MCHC 33.6 RDW 15.2 Plt Count 235 MPV 8.1 D Sodium 139 Potassium 3.5 Chloride 105 Carbon Dioxide 27 Anion Gap 7 L BUN 21.1 H Creatinine 1.4 H Est GFR (CKD-EPI)AfAm 66.48 Est GFR (CKD-EPI)NonAf 57.36 Random Glucose 119 H Calcium 8.6 Total Bilirubin 1.2 H AST 26 ALT 26 Alkaline Phosphatase 69 Total Protein 7.4 Albumin 3.9 Valproic Acid Syphilis Serology Non-reactive COVID-19 (BOLIVAR) 05/12/20 05/14/20 13:00 08:15 WBC RBC Hgb Hct MCV MCH MCHC RDW Plt Count MPV Sodium Potassium Chloride Carbon Dioxide Anion Gap BUN Creatinine Est GFR (CKD-EPI)AfAm Est GFR (CKD-EPI)NonAf Random Glucose Calcium Total Bilirubin AST ALT Alkaline Phosphatase Total Protein Albumin Valproic Acid < 3.0 L Syphilis Serology COVID-19 (BOLIVAR) Not detected lab noted Assessment: 05/14/20 13:07 alcohol withdrawal Plan: ativan regiment
[2020-05-14] MEDS: OLANZapine 10 MG TABLET PO SCH (22:26)
[2020-05-14] MEDS: MELATONIN 5 MG TABLETS PO SCH (22:26)
[2020-05-14] MEDS: THIAMINE HCL 100 MG TABLET (FP) PO SCH (22:26)
[2020-05-15] MEDS ORDERED: LORazepam 0.5 MG TABLET PO PRN
[2020-05-15] MEDS: LORazepam 0.5 MG TABLET PO SCH ×4 (06:19→22:08)
[2020-05-15] MEDS: hydrOXYzine PAMOATE 25 MG CAPSULE (FP) PO SCH ×5 (06:19→22:08)
--- NOTE | 2020-05-15 09:02 | PN ---
S CIWA - CIWA Score Nausea/Vomitin-Mild Nausea/No Vomiting Muscle Tremors: 2 Anxiety: 2 Agitation: 2 Paroxysmal Sweats: No Perspiration Orientation: 0-Oriented Tacttile Disturbances: 0-None Auditory Disturbances: 0-None Visual Disturbances: 0-None Headache: 1-Very Mild CIWA-Ar Total Score: 8 BHS Progress Note (SOAP) Subjective: alert,anxious,interrupted sleep,aching pain Objective: 05/15/20 13:02 Vital Signs Temperature 97.1 F L 05/15/20 09:15 Pulse Rate 70 05/15/20 09:15 Respiratory Rate 18 05/15/20 09:15 Blood Pressure 104/73 05/15/20 09:15 O2 Sat by Pulse Oximetry (%) 97 05/14/20 20:53 Assessment: 05/15/20 13:02 withdrawal symptom Plan: continued detox ativan regimen,discharge in am
[2020-05-15] MEDS: PRENATAL VITAMINS W/ FOLIC ACID TABLET (FP) PO SCH (10:28)
[2020-05-15] MEDS: DIVALPROEX SODIUM 500 MG TABLET E.C. PO SCH ×2 (10:28→22:08)
[2020-05-15] MEDS: NICOTINE 7 MG/24 HOURS TOPICAL PATCH TD SCH (10:30)
[2020-05-15] MEDS: MOMETASONE FUROATE 110 MCG/IH INHALER IH SCH ×2 (10:30→22:10)
[2020-05-15] MEDS: MELATONIN 5 MG TABLETS PO SCH (22:08)
[2020-05-15] MEDS: OLANZapine 10 MG TABLET PO SCH (22:08)
[2020-05-15] MEDS: THIAMINE HCL 100 MG TABLET (FP) PO SCH (22:08)
[2020-05-16] MEDS ORDERED: LORazepam 0.5 MG TABLET PO ONE (05:00)
[2020-05-16 06:18] VITALS: BP 100/60; PULSE 65; TEMP 98.1
[2020-05-16] MEDS: hydrOXYzine PAMOATE 25 MG CAPSULE (FP) PO SCH ×2 (07:41→10:39)
--- NOTE | 2020-05-16 09:43 | PN ---
[facility] CIWA - CIWA Score Nausea/Vomitin-No Nausea/No Vomiting Muscle Tremors: None Anxiety: 1-Mildly Anxious Agitation: 0-Normal Activity Paroxysmal Sweats: No Perspiration Orientation: 0-Oriented Tacttile Disturbances: 0-None Auditory Disturbances: 0-None Visual Disturbances: 0-None Headache: 0-None Present CIWA-Ar Total Score: 1 S Progress Note (SOAP) Subjective: alert,no complaint Objective: 05/16/20 10:33 Vital Signs Temperature 98.1 F 05/16/20 06:17 Pulse Rate 65 05/16/20 06:17 Respiratory Rate 18 05/16/20 06:17 Blood Pressure 100/60 05/16/20 06:17 O2 Sat by Pulse Oximetry (%) 96 05/16/20 06:17 Assessment: 05/16/20 10:33 detox completed,no withdrawal symptom Plan: stable for discharge today,follow up with after care program as arrangement
--- NOTE | 2020-05-16 10:34 | DS ---
[facility] Detox Discharge Summary Admission Date: 05/12/20 Discharge Date: 05/16/20 - History Present History: Alcohol Dependence, Cannabis Dependence, Cocaine Dependence Additional Comments: alert,oriented x 3 ambulation on the unit lung clear on auscultation bilaterally abdomen soft,no pain no edema of legs detox completed,no withdrawal symptom follow up with after care program as arrangement [facility] as arrangement left the unit in stable condition Pertinent Past History: asthma schizoaffective disorder - Physical Exam Results Vital Signs: Vital Signs Temperature 98.1 F 05/16/20 06:17 Pulse Rate 65 05/16/20 06:17 Respiratory Rate 18 05/16/20 06:17 Blood Pressure 100/60 05/16/20 06:17 O2 Sat by Pulse Oximetry (%) 96 05/16/20 06:17 Pertinent Admission Physical Exam Findings: withdrawal signs and symptom Laboratory Last Values WBC 5.9 K/mm3 (4.0-10.0) 05/12/20 12:15 RBC 5.35 M/mm3 (4.00-5.60) 05/12/20 12:15 Hgb 14.9 GM/dL (11.7-16.9) 05/12/20 12:15 Hct 44.4 % (35.4-49) 05/12/20 12:15 MCV 83.1 fl (80-96) 05/12/20 12:15 MCH 27.9 pg (25.7-33.7) 05/12/20 12:15 MCHC 33.6 g/dl (32.0-35.9) 05/12/20 12:15 RDW 15.2 % (11.9-15.9) 05/12/20 12:15 Plt Count 235 K/MM3 (134-434) 05/12/20 12:15 MPV 8.1 fl (7.5-11.1) D 05/12/20 12:15 Sodium 139 mmol/L (136-145) 05/12/20 12:15 Potassium 3.5 mmol/L (3.5-5.1) 05/12/20 12:15 Chloride 105 mmol/L (98-107) 05/12/20 12:15 Carbon Dioxide 27 mmol/L (21-32) 05/12/20 12:15 Anion Gap 7 MMOL/L (8-16) L 05/12/20 12:15 BUN 21.1 mg/dL (7-18) H 05/12/20 12:15 Creatinine 1.4 mg/dL (0.55-1.3) H 05/12/20 12:15 Est GFR (CKD-EPI)AfAm 66.48 05/12/20 12:15 Est GFR (CKD-EPI)NonAf 57.36 05/12/20 12:15 Random Glucose 119 mg/dL (74-106) H 05/12/20 12:15 Calcium 8.6 mg/dL (8.5-10.1) 05/12/20 12:15 Total Bilirubin 1.2 mg/dL (0.2-1) H 05/12/20 12:15 AST 26 U/L (15-37) 05/12/20 12:15 ALT 26 U/L (13-61) 05/12/20 12:15 Alkaline Phosphatase 69 U/L (45-117) 05/12/20 12:15 Total Protein 7.4 g/dl (6.4-8.2) 05/12/20 12:15 Albumin 3.9 g/dl (3.4-5.0) 05/12/20 12:15 Valproic Acid < 3.0 ug/mL (50-100) L 05/14/20 08:15 Syphilis Serology Non-reactive (NONREACTIVE) 05/12/20 12:15 COVID-19 (BOLIVAR) Not detected (Not Detected) 05/12/20 13:00 Vital Signs Temperature 98.1 F 05/16/20 06:17 Pulse Rate 65 05/16/20 06:17 Respiratory Rate 18 05/16/20 06:17 Blood Pressure 100/60 05/16/20 06:17 O2 Sat by Pulse Oximetry (%) 96 05/16/20 06:17 - Treatment Hospital Course: Detox Protocol Followed, Detoxed Safely, Responded well, Discharged Condition Good Patient has Accepted a Rehab Referral to: DECLINED - Medication Discharge Medications: Ambulatory Orders traZODone HCL [Trazodone HCl] 100 mg PO HS #30 tablet 01/15/18 Divalproex [Depakote -] 750 mg PO BID 05/04/18 Fluticasone Propionate [Flovent Diskus] 50 mcg IH DAILY MDD 2 PUFFS DAILY 05/04/18 Sertraline HCl [Zoloft -] 50 mg PO DAILY 05/04/18 Gabapentin 400 mg PO TID 05/05/18 Olanzapine [Zyprexa] 10 mg PO HS 05/05/18 Albuterol Sulfate Inhaler - [Ventolin HFA Inhaler -] 2 inh PO Q4H PRN #1 inhaler 05/16/20 Divalproex [Depakote -] 500 mg PO BID #60 tablet.ec 05/16/20 Olanzapine [Zyprexa] 10 mg PO HS #30 tablet 05/16/20 - Diagnosis (1) Alcohol dependence with uncomplicated withdrawal Current Visit: Yes Status: Chronic (2) Cannabis dependence Current Visit: Yes Status: Chronic (3) Cocaine dependence Current Visit: Yes Status: Chronic Qualifiers: Substance use status: uncomplicated Qualified Code(s): F14.20 - Cocaine dependence, uncomplicated (4) Schizoaffective disorder Current Visit: Yes Status: Chronic - AMA Did Patient Leave Against Medical Advice: No
[2020-05-16] MEDS: MOMETASONE FUROATE 110 MCG/IH INHALER IH SCH (10:36)
[2020-05-16] MEDS: DIVALPROEX SODIUM 500 MG TABLET E.C. PO SCH (10:37)
[2020-05-16] MEDS: NICOTINE 7 MG/24 HOURS TOPICAL PATCH TD SCH (10:37)
[2020-05-16] MEDS: PRENATAL VITAMINS W/ FOLIC ACID TABLET (FP) PO SCH (10:38)
== END 2020-05-16 13:30 | disposition home or self-care (01) | DRG 774 ==
LOC: YASAS 11:14 → Y3N 12:41
PROVIDERS: ADMIT Allergy & Immunology; ATTEND Allergy & Immunology
PROC: HZ2ZZZZ Detoxification Services for Substance Abuse Treatment (ICD-10-PCS; principal; 2020-05-12)
DX: F10.230 Alcohol dependence with withdrawal, uncomplicated (principal); F14.20 Cocaine dependence, uncomplicated; F19.24 Other psychoactive substance dependence with psychoactive substance-induced mood disorder; F25.9 Schizoaffective disorder, unspecified; F32.9 Major depressive disorder, single episode, unspecified; F41.9 Anxiety disorder, unspecified; J45.20 Mild intermittent asthma, uncomplicated; Z91.5 Personal history of self-harm; Z98.890 Other specified postprocedural states; Z56.0 Unemployment, unspecified; Z88.8 Allergy status to other drugs, medicaments and biological substances; Z91.013 Allergy to seafood
CPT/HCPCS: 36415; 80053; 80164; 85027; 86780; U0003

== ENCOUNTER 2020-06-19 13:22 | Inpatient (IN) | payer BC ==
[2020-06-19 14:10] VITALS: BMI 27.2
[2020-06-19] MEDS ORDERED: MENTHOL/PHENOL 1 EACH UD MM PRN (14:48)
[2020-06-19] MEDS ORDERED: ONDANSETRON *ODT* 4 MG TABLET SL PRN (14:48)
[2020-06-19] MEDS ORDERED: MAGNESIUM CITRATE 300 ML BOTTLE PO PRN (14:48)
[2020-06-19] MEDS ORDERED: MAG HYDROX/AL HYDROX/SIMETH 30 ML UNIT-DOSE CUP PO PRN (14:48)
[2020-06-19] MEDS ORDERED: NICOTINE POLACRILEX 2 MG GUM BUC PRN (14:48)
[2020-06-19] MEDS ORDERED: MAGNESIUM HYDROX 2400MG/30ML ORAL SUSPENSION 30 ML CUP PO PRN (14:48)
[2020-06-19] MEDS ORDERED: ACETAMINOPHEN 325 MG TABLET (FP) PO PRN (14:48)
[2020-06-19] MEDS ORDERED: METHOCARBAMOL 500 MG TABLET PO PRN (14:48)
[2020-06-19] MEDS ORDERED: BISMUTH SUBSALICYLATE 524 MG/30 ML UD PO PRN (14:48)
[2020-06-19] MEDS ORDERED: ALBUTEROL SO4 HFA INHALER IH PRN (14:51)
[2020-06-19] MEDS: diazePAM 5 MG TABLET PO PRN (15:34)
[2020-06-19 17:27] LABS: POTASSIUM 3.6 mmol/L (3.5-5.1)
[2020-06-19 17:32] LABS: ALBUMIN 3.8 g/dl (3.4-5.0); BLOOD UREA NITROGEN 10.6 mg/dL (7-18); CALCIUM 8.8 mg/dL (8.5-10.1)
[2020-06-19 17:33] LABS: HEMATOCRIT 43.7 % (35.4-49); HEMOGLOBIN 14.5 GM/dL (11.7-16.9); MCH 27.7 pg (25.7-33.7); MCHC 33.2 g/dl (32.0-35.9); MEAN CELL VOLUME 83.3 fl (80-96); MEAN PLT VOLUME 8.9 fl (7.5-11.1); PLATELET COUNT 207 K/MM3 (134-434); RBC 5.24 M/mm3 (4.00-5.60); WHITE BLOOD COUNT 5.9 K/mm3 (4.0-10.0)
[2020-06-19 17:36] LABS: CREATININE 1.4 mg/dL (0.55-1.3)
[2020-06-19 17:37] LABS: BILIRUBIN,TOTAL 0.8 mg/dL (0.2-1); TOT PROT 7.2 g/dl (6.4-8.2)
[2020-06-19] MEDS: diazePAM 5 MG TABLET PO SCH ×2 (17:45→22:37)
[2020-06-19] MEDS: hydrOXYzine PAMOATE 25 MG CAPSULE (FP) PO SCH ×2 (17:45→22:37)
[2020-06-19] MEDS: IBUPROFEN 400 MG TABLET (FP) PO PRN (17:47)
[2020-06-19 18:25] LABS: HIV INTERPRETATION NEGATIVE (NEGATIVE)
[2020-06-19] MEDS: MELATONIN 5 MG TABLETS PO SCH (22:37)
[2020-06-19] MEDS: THIAMINE HCL 100 MG TABLET (FP) PO SCH (22:37)
[2020-06-20] MEDS: diazePAM 5 MG TABLET PO SCH ×4 (05:26→22:37)
[2020-06-20] MEDS: hydrOXYzine PAMOATE 25 MG CAPSULE (FP) PO SCH ×5 (05:26→22:37)
[2020-06-20] MEDS: ACETAMINOPHEN 325 MG TABLET (FP) PO PRN ×2 (09:03→23:44)
[2020-06-20] MEDS: PRENATAL VITAMINS W/ FOLIC ACID TABLET (FP) PO SCH (10:25)
[2020-06-20] MEDS: NICOTINE 7 MG/24 HOURS TOPICAL PATCH TD SCH (10:25)
[2020-06-20] MEDS: FAMOTIDINE 20 MG TABLET PO SCH (10:25)
[2020-06-20] MEDS ORDERED: LIDOCAINE VISCOUS 2% ORAL/TOP 100 ML BOTTLE MM PRN (11:39)
[2020-06-20] MEDS: IBUPROFEN 400 MG TABLET (FP) PO PRN ×2 (13:10→20:03)
[2020-06-20] MEDS: CHLORHEXIDINE GLUCONATE 118 ML MOUTHWASH MM SCH ×2 (16:10→22:40)
[2020-06-20] MEDS: AMOXICILLIN 500 MG CAPSULE (FP) PO SCH ×2 (16:10→22:37)
[2020-06-20] MEDS: LIDOCAINE VISCOUS 2% ORAL/TOP 20 ML UNIT-DOSE CUP MM PRN (20:05)
[2020-06-20] MEDS: MELATONIN 5 MG TABLETS PO SCH (22:37)
[2020-06-20] MEDS: traZODone HCL 100 MG TABLET (FP) PO SCH (22:37)
[2020-06-20] MEDS: OLANZapine 10 MG TABLET PO SCH (22:37)
[2020-06-20] MEDS: THIAMINE HCL 100 MG TABLET (FP) PO SCH (22:37)
[2020-06-21] MEDS: LIDOCAINE VISCOUS 2% ORAL/TOP 20 ML UNIT-DOSE CUP MM PRN (01:10)
[2020-06-21] MEDS: IBUPROFEN 400 MG TABLET (FP) PO PRN (01:49)
[2020-06-21] MEDS ORDERED: IBUPROFEN 400 MG TABLET (FP) PO ONE (02:25)
[2020-06-21] MEDS: hydrOXYzine PAMOATE 25 MG CAPSULE (FP) PO SCH ×2 (06:07→10:23)
[2020-06-21] MEDS: diazePAM 5 MG TABLET PO SCH ×3 (06:08→22:30)
[2020-06-21] MEDS: BENZOCAINE 20 % GEL TUBE MM PRN ×2 (06:10→22:30)
[2020-06-21] MEDS: FAMOTIDINE 20 MG TABLET PO SCH (10:23)
[2020-06-21] MEDS: AMOXICILLIN 500 MG CAPSULE (FP) PO SCH ×2 (10:23→22:30)
[2020-06-21] MEDS: PRENATAL VITAMINS W/ FOLIC ACID TABLET (FP) PO SCH (10:23)
[2020-06-21] MEDS: CHLORHEXIDINE GLUCONATE 118 ML MOUTHWASH MM SCH ×2 (10:24→22:32)
[2020-06-21] MEDS: diazePAM 5 MG TABLET PO PRN (10:24)
[2020-06-21] MEDS: NICOTINE 7 MG/24 HOURS TOPICAL PATCH TD SCH (10:25)
[2020-06-21] MEDS ORDERED: hydrOXYzine PAMOATE 25 MG CAPSULE (FP) PO PRN (11:37)
[2020-06-21] MEDS ORDERED: MELATONIN 5 MG TABLETS PO PRN (11:38)
[2020-06-21] MEDS: OLANZapine 10 MG TABLET PO SCH (22:30)
[2020-06-21] MEDS: traZODone HCL 100 MG TABLET (FP) PO SCH (22:30)
[2020-06-21] MEDS: THIAMINE HCL 100 MG TABLET (FP) PO SCH (22:31)
[2020-06-22] MEDS: diazePAM 5 MG TABLET PO SCH ×2 (05:49→18:01)
[2020-06-22] MEDS: NICOTINE 7 MG/24 HOURS TOPICAL PATCH TD SCH (10:12)
[2020-06-22] MEDS: CHLORHEXIDINE GLUCONATE 118 ML MOUTHWASH MM SCH ×2 (10:12→22:17)
[2020-06-22] MEDS: FAMOTIDINE 20 MG TABLET PO SCH (10:12)
[2020-06-22] MEDS: AMOXICILLIN 500 MG CAPSULE (FP) PO SCH ×2 (10:12→22:15)
[2020-06-22] MEDS: PRENATAL VITAMINS W/ FOLIC ACID TABLET (FP) PO SCH (10:12)
[2020-06-22] MEDS: BENZOCAINE 20 % GEL TUBE MM PRN ×2 (10:13→22:15)
[2020-06-22] MEDS: OLANZapine 10 MG TABLET PO SCH (22:15)
[2020-06-22] MEDS: traZODone HCL 100 MG TABLET (FP) PO SCH (22:15)
[2020-06-22] MEDS: THIAMINE HCL 100 MG TABLET (FP) PO SCH (22:15)
[2020-06-23] MEDS ORDERED: diazePAM 5 MG TABLET PO ONE (06:00)
[2020-06-23 09:24] VITALS: BP 130/79; PULSE 91; TEMP 96.6
[2020-06-23] MEDS: PRENATAL VITAMINS W/ FOLIC ACID TABLET (FP) PO SCH (10:44)
[2020-06-23] MEDS: NICOTINE 7 MG/24 HOURS TOPICAL PATCH TD SCH (10:44)
[2020-06-23] MEDS: AMOXICILLIN 500 MG CAPSULE (FP) PO SCH (10:44)
[2020-06-23] MEDS: CHLORHEXIDINE GLUCONATE 118 ML MOUTHWASH MM SCH (10:44)
[2020-06-23] MEDS: FAMOTIDINE 20 MG TABLET PO SCH (10:44)
== END 2020-06-23 08:46 | disposition home or self-care (01) | DRG 774 ==
LOC: YASAS 13:22 → Y3N 14:24
PROVIDERS: ADMIT Allergy & Immunology; ATTEND Allergy & Immunology
PROC: HZ2ZZZZ Detoxification Services for Substance Abuse Treatment (ICD-10-PCS; principal; 2020-06-19)
DX: F10.230 Alcohol dependence with withdrawal, uncomplicated (principal); F14.20 Cocaine dependence, uncomplicated; F19.282 Other psychoactive substance dependence with psychoactive substance-induced sleep disorder; F19.24 Other psychoactive substance dependence with psychoactive substance-induced mood disorder; F25.9 Schizoaffective disorder, unspecified; F32.9 Major depressive disorder, single episode, unspecified; J45.20 Mild intermittent asthma, uncomplicated; K21.9 Gastro-esophageal reflux disease without esophagitis; K08.89 Other specified disorders of teeth and supporting structures; R73.9 Hyperglycemia, unspecified; Z98.890 Other specified postprocedural states; Z91.5 Personal history of self-harm; Z88.8 Allergy status to other drugs, medicaments and biological substances; Z91.013 Allergy to seafood
CPT/HCPCS: 36415; 80053; 82962; 85027; 86780; 87389; C9803; U0003